=== PATIENT | female | born 1950 | race Caucasian/White ===

== ENCOUNTER 2017-11-16 18:51 | Emergency (ER) | payer MEDICARE, MEDICAID ==
[2016-09-03 14:14] VITALS: Wt 113.4 kg
[~2017-11-16 18:51] MED LIST: ACE325 PO; ACET-2607 PO; ASCO-182 PO; ASP325 PO; CEPH500C24 PO; CHOL10005 PO; CHOL100052 PO; CHOL100094 PO; CINN500C12 PO; CIP500 PO; CIPR-214 PO; CLIN-75 PO; CLIN300C99 PO; CLO10 PO; CYCL10TA29 PO; Clindamycin Hcl PO; FLUO40CA70 PO; FLUO40CA76 PO; GAB100 PO; GAB300 PO; GABA-549 PO; HYDR-385 PO; HYDR-4309 PO; IBUP-1671 PO; LEVO-85 PO; LIOT25TA19 PO; LOR5/325 PO; LURA20TA PO; MAG-65 PO; MELA1TAB17 PO; MELO-149 PO; METF-410 PO; METR-1 PO; MODA100T39 PO; MULT-16 PO; MULT-806 PO; MULT1TAB54 PO; NABU-1 PO; NABU-95 PO; NAP250 PO; NEOM1PAC11 TP; NYST100040 PO; OMEG-47 PO; OMEG10007 PO; OMEP40CA79 PO; PANT40TA65 PO; PRE5 PO; PRED20TA6 PO; PREN-127 PO; PROAIRPT IH; QUET50TA21 PO; RANI-324 PO; RIV10 PO; RIVA20TA PO; SIMV-49 PO; TRA50 PO; VAL500 PO; VALA100062 PO; VENL75CA58 PO; VITA-324 PO; VITA1CAP46 PO; WARF2.5T11 PO; WARF5TAB23 PO; Warfarin Sod PO
--- NOTE | 2017-11-16 18:54 | ER Report ---
History and Physical Time Seen By MD: 18:54 HPI/ROS CHIEF COMPLAINT: Heart pounding HISTORY OF PRESENT ILLNESS: 67-year-old female with a long history of mental health problems with numerous nits to [facility]. She states last night when retiring to bed. She had a heart pounding. Patient notes no near syncopal feeling. She notes no diaphoresis, nausea or shortness of breath. Patient states she was able to retire to bed. She felt that her heart slowed down and actually positive multiple times and then the palpitations came back. Patient denies caffeine or stimulants. Patient denies recent illness such as fever, chills, cough, sore throat or rhinitis. Patient denies leg swelling or calf pain. She does have a distant history of a PE. She is currently not on any blood thinners. She notes no chest pain. She states that she should've come in last night for evaluation. On presentation now she reports she is asymptomatic. Her heart rate is 74 bpm on the cardiac rn. REVIEW OF SYSTEMS: Respiratory: No cough, no dyspnea. Cardiovascular: As above Gastrointestinal: No vomiting, no abdominal pain. Musculoskeletal: No back pain. Allergies: Coded Allergies: Penicillins (Verified Allergy, Mild, 11/16/17) Sulfa (Sulfonamide Antibiotics) (Verified Allergy, Mild, 11/16/17) topiramate (Verified Allergy, Mild, 11/16/17) latex (Verified Allergy, Unknown, 11/16/17) erythromycin base (Verified Adverse Reaction, Intermediate, NAUSEA/ VOMITING, 11/16/17) Home Meds Active Scripts Pantoprazole Sodium (PANTOPRAZOLE SODIUM) 40 Mg Tablet.dr, 1 TAB PO DAILY, #60 TAB 6 Refills Take 1 tablet every morning 1/2 hour before eating Prov:SARAH MARIA MD 08/03/17 Reported Medications Quetiapine Fumarate (SEROQUEL) 50 Mg Tablet, 50 MG PO QHS 07/17/17 Nabumetone (NABUMETONE) 500 Mg Tablet, 500 MG PO BID, #20 TAB 07/11/17 [place]-3/Dha/Epa/Fish Oil (Fish Oil 1,000 mg Softgel) 1,000 Mg (120 Mg-180 Mg) Capsule, 1 CAP PO QDAY 07/10/17 Vits W-Ca,Fe,Fa(<1MG) ( VITAMINS) 1 Each Tablet, 1 EACH PO DAILY, TAB 07/10/17 Liothyronine Sodium (CYTOMEL) 25 Mcg Tablet, 12.5 MCG PO QAM, #30 1 Refill 09/11/16 Modafinil (PROVIGIL) 100 Mg Tablet, 200 MG PO DAILY 03/10/16 Venlafaxine Hcl (EFFEXOR XR) 75 Mg Cap.er.24h, 300 MG PO QDAY 02/18/14 Albuterol Sulfate (Proair Hfa) 8.5 Gm Aer.w.adap, 8.5 GM IH PRN 10/25/12 Gabapentin (Neurontin) 100 Mg Cap, 300 MG PO, 0 Refills 600MG IN AM AND 1200MG PM 07/12/11 Discontinued Scripts Hydrocodone Bit/Acetaminophen (HYDROCODON-ACETAMINOPHEN 5-325) 1 Each Tablet, 1 EACH PO Q4-6H Y for PAIN, #12 TAB Prov:ROSA MARIA BENZ [facility] 08/12/17 Metronidazole (FLAGYL) 500 Mg Tablet, 500 MG PO TID, #30 TAB Prov:ROSA MARIA BENZ [facility] 08/12/17 Ciprofloxacin Hcl (CIPROFLOXACIN HCL) 500 Mg Tablet, 500 MG PO Q12H, #20 TAB Prov:ROSA MARIA BENZ [facility] 08/12/17 Past Medical/Surgical History Patient has a past medical history of polymyalgia rheumatica, TIA, migraines, cardiomyopathy, [place], heart palpitations, hyperlipidemia, asthma, pulmonary embolism, reflux, frequent UTI, arthritis, osteoporosis, back pain, cyst on thyroid, prediabetic, depression, borderline personality, cervical cancer. Patient has surgical history of cardiac stent, appendectomy, cholecystectomy, polyps removed, tubal ligation, tumor on knee, tonsillectomy, carcinoma removed from back. Patient has a family medical history of cancer, diabetes, psychiatric problems. Reviewed Nurses Notes: Yes Old Medical Records Reviewed: Yes Hx Smoking: No Smoking Status: Never Smoker Exposure to Second Hand Smoke?: No Hx Substance Use Disorder: No Hx Alcohol Use: No Constitutional Vital Sign - Last 24 Hours 11/16/17 11/16/17 11/16/17 11/16/17 19:01 19:15 19:30 19:45 Temp 98.2 Pulse 76 68 77 69 Resp 10 16 14 10 B/P (MAP) 156/79 128/64 (85) Pulse Ox 92 91 91 90 O2 Delivery Room Air 11/16/17 20:00 Pulse 69 Resp 11 B/P (MAP) 132/73 (92) Pulse Ox 91 Intake and Output 11/16/17 11/16/17 11/17/17 15:00 23:00 07:00 Output Total 30 ml Balance -30 ml Physical Exam General Appearance: The patient is alert, has no immediate need for airway protection and no current signs of toxicity. Vital signs stable, afebrile, pulse ox normal HEENT: Pupils equal and round no injection. TMs normal, oropharynx without redness or exudate, mucous. Membranes are moist., Respiratory: Chest is non tender, lungs are clear to auscultation. No chest wall tenderness Cardiac: regular rate and rhythm Gastrointestinal: Abdomen is soft and non tender, no masses, bowel sounds normal. Musculoskeletal: Neck: Neck is supple and non tender. No lymphadenopathy, no JVD Extremities have full range of motion and are non tender. No edema, no calf tenderness, no Homans sign Skin: No rashes or lesions. DIFFERENTIAL DIAGNOSIS: After history and physical exam differential diagnosis was considered for chest pain including but not limited to myocardial ischemia, pericarditis pulmonary embolus, chest wall pain, pleural inflammation and pulmonary infectious causes. Medical Decision Making Data Points Result Diagram: 11/16/17190911/16/171909 Laboratory Hematology Test 11/16/17 19:10 11/16/17 19:33 Red Blood Count 4.69 M/uL (4.17-5.56) Mean Corpuscular Volume 88.2 fL (80.0-96.0) Mean Corpuscular Hemoglobin 30.8 pg (26.0-33.0) Mean Corpuscular Hemoglobin Concent 34.9 g/dL (32.0-36.0) Red Cell Distribution Width 14.6 % (11.5-14.5) Mean Platelet Volume 10.2 fL (7.2-11.1) Neutrophils (%) (Auto) 61.6 % (39.4-72.5) Lymphocytes (%) (Auto) 28.5 % (17.6-49.6) Monocytes (%) (Auto) 6.8 % (4.1-12.4) Eosinophils (%) (Auto) 2.2 % (0.4-6.7) Basophils (%) (Auto) 0.9 % (0.3-1.4) Nucleated RBC Relative Count (auto) 0.1 /100WBC Neutrophils # (Auto) 6.1 K/uL (2.0-7.4) Lymphocytes # (Auto) 2.8 K/uL (1.3-3.6) Monocytes # (Auto) 0.7 K/uL (0.3-1.0) Eosinophils # (Auto) 0.2 K/uL (0.0-0.5) Basophils # (Auto) 0.1 K/uL (0.0-0.1) Nucleated RBC Absolute Count (auto) 0.01 K/uL Sodium Level 138 mmol/L (137-145) Potassium Level 4.4 mmol/L (3.5-5.0) Chloride Level 104 mmol/L (98-107) Carbon Dioxide Level 25 mmol/L (22-31) Blood Urea Nitrogen 18 mg/dl (7-18) Creatinine 0.80 mg/dl (0.52-1.04) Glomerular Filtration Rate Calc > 60.0 Random Glucose 98 mg/dl (75-110) Calcium Level 9.3 mg/dl (8.4-10.2) Total Bilirubin 0.3 mg/dl (0.2-1.3) Aspartate Amino Transf (AST/SGOT) 25 U/L (0-35) Alanine Aminotransferase (ALT/SGPT) 31 U/L (0-56) Alkaline Phosphatase 130 U/L (0-126) Troponin I < 0.012 ng/ml B-Type Natriuretic Peptide 45 pg/ml (0-100) Total Protein 7.8 gm/dl (6.3-8.2) Albumin 4.2 g/dl (3.5-5.0) Urine Color Yellow Urine Clarity Clear Urine pH 6.0 pH (4.8-9.5) Urine Specific [place] 1.017 Urine Protein Negative mg/dL (NEGATIVE) Urine Glucose (UA) Negative mg/dL (NEGATIVE) Urine Ketones Negative mg/dL (NEGATIVE) Urine Blood Negative (NEGATIVE) Urine Nitrite Negative (NEGATIVE) Urine Bilirubin Negative (NEGATIVE) Urine Urobilinogen Negative mg/dL (0.2-1.9) Urine Leukocyte Esterase Trace (NEGATIVE) Urine RBC 1 /HPF (0-2/HPF) Urine WBC 9 /HPF (0-5/HPF) Urine Squamous Epithelial Cells None /LPF (NONE-FEW) Urine Bacteria Negative /HPF (NONE-FEW) Urine Mucus None /HPF (NONE-FEW) Chemistry Test 11/16/17 19:10 11/16/17 19:33 White Blood Count 10.0 k/uL (4.5-11.0) Red Blood Count 4.69 M/uL (4.17-5.56) Hemoglobin 14.4 g/dL (12.0-16.0) Hematocrit 41.3 % (34.0-47.0) Mean Corpuscular Volume 88.2 fL (80.0-96.0) Mean Corpuscular Hemoglobin 30.8 pg (26.0-33.0) Mean Corpuscular Hemoglobin Concent 34.9 g/dL (32.0-36.0) Red Cell Distribution Width 14.6 % (11.5-14.5) Platelet Count 188 K/uL (150-450) Mean Platelet Volume 10.2 fL (7.2-11.1) Neutrophils (%) (Auto) 61.6 % (39.4-72.5) Lymphocytes (%) (Auto) 28.5 % (17.6-49.6) Monocytes (%) (Auto) 6.8 % (4.1-12.4) Eosinophils (%) (Auto) 2.2 % (0.4-6.7) Basophils (%) (Auto) 0.9 % (0.3-1.4) Nucleated RBC Relative Count (auto) 0.1 /100WBC Neutrophils # (Auto) 6.1 K/uL (2.0-7.4) Lymphocytes # (Auto) 2.8 K/uL (1.3-3.6) Monocytes # (Auto) 0.7 K/uL (0.3-1.0) Eosinophils # (Auto) 0.2 K/uL (0.0-0.5) Basophils # (Auto) 0.1 K/uL (0.0-0.1) Nucleated RBC Absolute Count (auto) 0.01 K/uL Glomerular Filtration Rate Calc > 60.0 Calcium Level 9.3 mg/dl (8.4-10.2) Total Bilirubin 0.3 mg/dl (0.2-1.3) Aspartate Amino Transf (AST/SGOT) 25 U/L (0-35) Alanine Aminotransferase (ALT/SGPT) 31 U/L (0-56) Alkaline Phosphatase 130 U/L (0-126) Troponin I < 0.012 ng/ml B-Type Natriuretic Peptide 45 pg/ml (0-100) Total Protein 7.8 gm/dl (6.3-8.2) Albumin 4.2 g/dl (3.5-5.0) Urine Color Yellow Urine Clarity Clear Urine pH 6.0 pH (4.8-9.5) Urine Specific [place] 1.017 Urine Protein Negative mg/dL (NEGATIVE) Urine Glucose (UA) Negative mg/dL (NEGATIVE) Urine Ketones Negative mg/dL (NEGATIVE) Urine Blood Negative (NEGATIVE) Urine Nitrite Negative (NEGATIVE) Urine Bilirubin Negative (NEGATIVE) Urine Urobilinogen Negative mg/dL (0.2-1.9) Urine Leukocyte Esterase Trace (NEGATIVE) Urine RBC 1 /HPF (0-2/HPF) Urine WBC 9 /HPF (0-5/HPF) Urine Squamous Epithelial Cells None /LPF (NONE-FEW) Urine Bacteria Negative /HPF (NONE-FEW) Urine Mucus None /HPF (NONE-FEW) Urinalysis Test 11/16/17 19:33 Urine Color Yellow Urine Clarity Clear Urine pH 6.0 pH (4.8-9.5) Urine Specific [place] 1.017 Urine Protein Negative mg/dL (NEGATIVE) Urine Glucose (UA) Negative mg/dL (NEGATIVE) Urine Ketones Negative mg/dL (NEGATIVE) Urine Blood Negative (NEGATIVE) Urine Nitrite Negative (NEGATIVE) Urine Bilirubin Negative (NEGATIVE) Urine Urobilinogen Negative mg/dL (0.2-1.9) Urine Leukocyte Esterase Trace (NEGATIVE) Urine RBC 1 /HPF (0-2/HPF) Urine WBC 9 /HPF (0-5/HPF) Urine Squamous Epithelial Cells None /LPF (NONE-FEW) Urine Bacteria Negative /HPF (NONE-FEW) Urine Mucus None /HPF (NONE-FEW) EKG/Imaging EKG Interpretation 12 lead EK Rhythm: normal sinus rhythm Ramsey: normal QRS: normal, low voltage QRS ST segments: normal, comparison to previous EKG dated 09/14/16, no significant morphologic change. There is some subtle axis change, no evidence of ischemia Imaging X-ray: Single view portable chest x-ray was obtained. I viewed the images myself on the PACS system. My interpretation of the images is: No infiltrate, no effusion,, normal mediastinum. The radiologist interpretation had no clinically significant variation from this interpretation. ED Course/Re-evaluation Clinical Indication for ER IV: IV Access ED Course Patient admitted to an examination room. H&P is done. The differential diagnosis was considered. On clinical examination. Patient has no findings. Her EKG is unremarkable. Her chest x-rays unremarkable. Her diagnostic studies are unremarkable. A urinalysis is unremarkable. Patient is reassured that there are no obvious explanations for her tachycardia and palpitations. I suspect she suffered an anxiety attack. She does have a history of mental health disorder. She is advised to follow-up with her primary care this week for further evaluation and monitoring of the symptoms. She may benefit from a Holter monitor to detect any dysrhythmias. Decision to Disposition Date: Nov 16, 2017 Decision to Disposition Time: 19:37 Depart Departure Latest Vital Signs Vital Signs Date Time Temp Pulse Resp B/P (MAP) Pulse Ox O2 Delivery O2 Flow Rate FiO2 11/16/17 20:00 69 11 132/73 (92) 91 11/16/17 19:01 98.2 Room Air Impression: Primary Impression: Heart palpitations Condition: Improved Disposition: HOME OR SELF-CARE Referrals: SANDEE LAWSON (PCP) Patient Instructions: Palpitations (ED) Additional Instructions: Follow-up with your primary care within one week for referral for a Holter monitor to evaluate your palpitations JAZMÍN COATS DO Nov 16, 2017 18:54
[2017-11-16 19:20] LABS: PLATELET COUNT, AUTOMATED 188 K/uL (150-450)
--- NOTE | 2017-11-16 19:38 | EKG ---
[place] [facility] [place] SHERI REILLY : [id number] MR: [id number] V: [id number] EXAM DATE: ORDERING PHYSICIAN: JAZMÍN COATS TECHNOLOGIST: RAQUEL Mathis Reason : PALPITATIONS Blood Pressure : / mmHG Vent. Rate : 068 BPM Atrial Rate : 068 BPM P-R Int : 172 ms QRS Dur : 082 ms QT Int : 426 ms P-R-T Axes : 059 -16 033 degrees QTc Int : 452 ms Normal sinus rhythm Low voltage QRS Septal infarct , age undetermined Abnormal ECG When compared with ECG of 15-JUL-2017 21:17, premature ventricular complexes are no longer present Questionable change in QRS axis Confirmed by SARAH DUBOIS ([id number]) on 11/18/2017 2:16:14 PM Referred By: Confirmed By:SARAH DUBOIS
--- NOTE | 2017-11-16 19:39 | RADIOLOGY IMAGING REPORT ---
FACILITY: [facility] - [place] PATIENT NAME: Lisbet Staples : 1950 MR: [id number] V: [id number] EXAM DATE: ORDERING PHYSICIAN: JAZMÍN COATS TECHNOLOGIST: Location: [facility] [place] Patient: Lisbet Staples : 1950 Visit/Account:[id number] Date of Sevice: 11/16/2017 EXAMINATION: Chest radiograph HISTORY: Chest pain COMPARISON: April 24, 2015 FINDINGS: The cardiac silhouette is normal in size. No pneumothorax. Small calcified granuloma in the medial le ft lower lobe is new. This could alternatively represent a blood vessel mimicking a calcified granulo ma. Otherwise clear lungs. No acute osseous abnormality. IMPRESSION: No acute finding. Report Dictated By: Kaushik Diop MD at 11/16/2017 7:32 PM Report E-Signed By: Kaushik Diop MD at 11/16/2017 7:34 PM [id number]
[2017-11-16 20:00] VITALS: BP 132/73
== END 2017-11-16 20:20 | disposition home or self-care (01) ==
LOC: ER 19:21
DX: R00.2 Palpitations (principal); R94.31 Abnormal electrocardiogram [ECG] [EKG]
CPT/HCPCS: 71045; 81001; 83880; 84484; 85025; 93005; 99284; A4353; 82040; 82247; 82310; 82374; 82435; 82565; 82947; 84075; 84132; 84155; 84295; 84450; 84460; 84520

== ENCOUNTER → 2018-01-24 | Outpatient (REF) | payer MEDICARE, MEDICAID ==
[2016-09-03 14:14] VITALS: BMI 41.0
[~2018-01-24] MED LIST changes: -METF-410 PO; +METF-411 PO; -RANI-324 PO; +RANI-366 PO
[2018-01-24 16:54] LABS: PLATELET COUNT, AUTOMATED 176 K/uL (150-450)
== END ==
LOC: ZZSTITCHES 16:27
PROVIDERS: ATTEND Physician Assistant
DX: N93.9 Abnormal uterine and vaginal bleeding, unspecified (principal); R71.8 Other abnormality of red blood cells; R35.0 Frequency of micturition; R00.2 Palpitations; R94.6 Abnormal results of thyroid function studies; E11.9 Type 2 diabetes mellitus without complications
CPT/HCPCS: 82040; 82247; 82310; 82374; 82435; 82565; 82947; 83036; 83690; 84075; 84132; 84155; 84295; 84439; 84443; 84450; 84460; 84481; 84520; 85025; 87088

== ENCOUNTER → 2018-02-02 | Outpatient (CLI) | payer MEDICARE, MEDICAID ==
[2016-09-03 14:14] VITALS: BMI 41.0
--- NOTE | 2018-02-06 14:53 | RT HOLTER TEST ---
FACILITY: [facility] PATIENT NAME: SHERI REILLY : [id number] MR: [id number] V: [id number] EXAM DATE: ORDERING PHYSICIAN: SANDEE LAWSON TECHNOLOGIST: Noemy Rosas-up date: 2018-02-02 13:18:00 Duration: 47:59:00 Test Indications: SOB, FATIGUE Medications: Gabapentin Effexor Nabutone Lethothyroxine Profigil Protonix Tramadol [id number] QRS complexes 30759 Ventricular ectopics which represent 5 % of total QRS comp. 20 Supraventricular ectopics which represent <1 % of total QRS comp. * Paced QRS complexes which represent % of total QRS comp. VENTRICULAR ECTOPY 77684 Isolated 21 Bigeminal Cycles 206 Couplets 1 Runs 3 Beats in Runs 3 Beats LONGEST at 138 BPM at 23:51:25 2018-02-03 3 Beats FASTEST at 138 BPM at 23:51:25 2018-02-03 SUPRAVENTRICULAR ECTOPY 17 Isolated 0 Couplets 1 Runs 3 Beats in Runs 3 Beats LONGEST at 123 BPM at 21:19:08 2018-02-02 3 Beats FASTEST at 123 BPM at 21:19:08 2018-02-02 HEART RATES 54 MIN at 09:14:13 2018-02-04 77 AVG 122 MAX at 13:51:51 2018-02-03 LONGEST RR 1.416 secs at 20:52:38 2018-02-03 Channel 3 -12.800 mm MIN at 13:18:00 2018-02-02 -12.800 mm MAX at 13:18:00 2018-02-02 Sinus rhythm Premature ventricular complexes Isolated Couplets Confirmed by SARAH DUBOIS ([id number]) on 02/06/2018 2:52:18 PM Referred By: Overread By: SARAH DUBOIS
== END ==
LOC: RESP 01:48
PROVIDERS: ATTEND Physician Assistant
DX: R00.2 Palpitations (principal); R35.0 Frequency of micturition; R71.8 Other abnormality of red blood cells; N93.9 Abnormal uterine and vaginal bleeding, unspecified; R94.6 Abnormal results of thyroid function studies; E11.9 Type 2 diabetes mellitus without complications
CPT/HCPCS: 93225; 93226

== ENCOUNTER → 2018-02-11 | Outpatient (CLI) | payer MEDICARE, MEDICAID ==
[2016-09-03 14:14] VITALS: BMI 41.0
== END ==
LOC: LAB 13:39
PROVIDERS: ATTEND Obstetrics & Gynecology
DX: N89.8 Other specified noninflammatory disorders of vagina (principal)
CPT/HCPCS: 87210

== ENCOUNTER → 2018-02-17 | Outpatient (CLI) | payer MEDICARE, MEDICAID ==
[2016-09-03 14:14] VITALS: BMI 41.0
--- NOTE | 2018-02-17 14:02 | RADIOLOGY IMAGING REPORT ---
FACILITY: PATIENT NAME: Lisbet Staples : 1950 MR: [id number] V: [id number] EXAM DATE: ORDERING PHYSICIAN: FRANCISCO ONEIL TECHNOLOGIST: Location: [facility] - [place] Patient: Lisbet Staples : 1950 Visit/Account:[id number] Date of Sevice: 02/17/2018 TRANSVAGINAL NON-OB HISTORY: POSTMENOPAUSAL BLEEDING TECHNIQUE: Transvaginal ultrasound pelvis. COMPARISON: CT and pelvis August 12, 2017 FINDINGS: Uterus: ; 7.1 cm length x 3.2 cm AP x 4.7 cm transverse. Myometrium: Unremarkable. Endometrium: Appears irregular and heterogeneous. Two anechoic structures are seen within the endome trium one measuring 1 x 1 x 0.7 cm and one measuring 0.6 x 0.3 x 0.4 cm.; double thickness 8.8 mm. I ncidentally noted is a section scar Cervix: Grossly negative. Ovaries: Right - 2.1 x 1.2 x 1.4 cm and contains two calcifications one measuring 4 mm in diameter one me asuring 2 mm in diameter Left - 2 x 1.8 x 1.8 cm Blood flow is documented in each ovary by duplex Doppler ultrasound. Adnexa: Grossly unremarkable. Free pelvic fluid: None. IMPRESSION: The endometrium appears heterogeneous and irregular containing two anechoic structures. Both ovaries appear atrophic. The right ovary contains two coarse calcifications Report Dictated By: Kalee Hsu MD at 02/17/2018 1:54 PM Report E-Signed By: Kalee Hsu MD at 02/17/2018 1:58 PM [id number]:[email or web address]
== END ==
LOC: RAD 11:24
PROVIDERS: ATTEND Obstetrics & Gynecology
DX: N83.312 Acquired atrophy of left ovary (principal); N83.311 Acquired atrophy of right ovary; N85.8 Other specified noninflammatory disorders of uterus
CPT/HCPCS: 76830

== ENCOUNTER 2018-03-11 15:15 | Outpatient (RCR) | payer MEDICARE, MEDICAID ==
[2016-09-03 14:14] VITALS: BMI 41.0
--- NOTE | 2018-02-09 17:23 | PT INITIAL EVALUATION ---
MEDICAL DIAGNOSIS: R26.81 Unsteadiness on feet TREATMENT DIAGNOSIS: Same, altered gait DATE OF ONSET: 08/23/16 SUBJECTIVE: Lisbet Staples presents to PT for altered gait and balance, worsening over the last several years. She has a long R LE, was pigeon-toed as a child, per Lisbet, but also LBP and fatigue have made ambulation difficult. She uses a scooter to shop at [employer] or a standard cart for other grocery stores, with fatigue by the end of a short shopping trip. She also has R knee pain but isn' t ready to see an orthopedic doctor about it. She reports falling in the last 3 months without injury. Pain location is L-S and described as ache, grab. Pain scale is 8 on a ten point pain scale. Pain is worse with walking short community distances, static standing, sitting twisted and better with nothing reduces the pain. REHAB PROBLEM LIST: Increased Pain Decreased ROM Decreased Strength Decreased Endurance Decreased Balance Decreased Gait PREVIOUS MEDICAL HISTORY: Polymyalgia rheumatica, L TKA, migraines, PE, asthma, back pain, psychiatric disorder, R knee pain. OCCUPATION: Disabled OBJECTIVE: Posture: Long R LE, ~ 1 to 1.5 inches, valgus knees, R lumbar scoliosis following long leg. ROM: Hip PROM IR/ER R 60/60 degrees, loose capsule, L 45/40 degrees, ankle DF 0 deg. B. B knee PROM WNL. Strength: Core strength 1/5, hip flexors 3+/5 B, L quad 4/5, R 4-/5, hamstrings 4/5 B, calves R 4+/5, L 4-/5. Special Tests: Negative SLR, B. Mobility: Independent. Gait: Lisbet ambulates with B trunk lean in stance, mild L LE IR after midstance, with pelvic rotation following head turn during gait with head turns, weaving with gait with head rotation and head up/down. She has reduced heel strike, long R LE gait as well. Dynamic gait index 18, a high fall risk. Balance: Double limb support only. Steady with eyes closed and push to chest. Immediate standing balance is WNL. ASSESSMENT: Lisbet Staples presents with core and LE weakness, reduced balance creating fall risk and reduced community ambulation. She did well with core and LE strengthening today. Short Term Goals/Patient's Goals: One month:Lisbet ambulates 50 feet with normal pelvic alignment during gait with head rotation. Two months: Lisbet ambulates without trunk lean substitution in stance, no falls for 1 month. Three months: Lisbet shops through [employer] pushing a standard grocery cart and walks 1 mile at the [employer] [place]. PLAN: Patient to be seen for Strengthening/condition, Range of Motion, Spinal Stabilization, Stretching, Neuromuscular Re-ed, Gait Trg/Balance Trg, Home Exercise Program 2x/Week for 3 months Thank you for this referral. If you have any questions, comments, or concerns about this report or plan, please contact me at . [facility]
--- NOTE | 2018-03-23 08:12 | PT PLAN OF CARE ---
Physician: Dr. Obdulio De La Torre Patient is on hold due to [facility] inpatient admission Therapist: Lorraine Valdez , PT Treatment Diagnosis: Same, altered gait Date of Onset: 08/23/16 Date of Initial Evaluation: 02/09/18 Date patient was last seen: 03/09/18 Number of treatments: 4 Number of cancellations/No shows: 3 INTERVENTIONS: Strengthening/condition Range of Motion Spinal Stabilization Stretching Neuromuscular Re-ed Gait Trg/Balance Trg Home Exercise Program GOALS/PATIENT'S GOAL: All not met due to LBP One month:Lisbet ambulates 50 feet with normal pelvic alignment during gait with head rotation. Two months: Lisbet ambulates without trunk lean substitution in stance, no falls for 1 month. Three months: Lisbet shops through [employer] pushing a standard grocery cart and walks 1 mile at the [employer] [place]. Patient Compliance: Excellent Prognosis: Excellent Reasons for discontinuing therapy: S: Lisbet was admitted to [facility] inpatient floor for intractable LBP. She had an MRI that's positive for more anterolisthesis in the lumbar spine. O: She had improved her postural stability but LBP was limiting treatment. A?P: LBP control is more important right now. Due to Lisbet's admission, I need to DC outpatient PT. Thank you. MICHELE
== END 2018-03-11 18:00 | disposition home or self-care (01) ==
LOC: PT 15:15
PROVIDERS: ATTEND Podiatrist Foot & Ankle Surgery
DX: R26.81 Unsteadiness on feet (principal); M54.5 Low back pain; R53.83 Other fatigue; M25.561 Pain in right knee; R29.6 Repeated falls; M35.3 Polymyalgia rheumatica; Z96.652 Presence of left artificial knee joint
CPT/HCPCS: 97162

== ENCOUNTER → 2018-03-17 | Outpatient (CLI) | payer MEDICARE, MEDICAID ==
[2016-09-03 14:14] VITALS: BMI 41.0
--- NOTE | 2018-03-17 14:59 | RADIOLOGY IMAGING REPORT ---
[place] [facility] [place]IENT NAME: Lisbet Staples : 1950 MR: [id number] V: [id number] EXAM DATE: ORDERING PHYSICIAN: ORESTES JUDD TECHNOLOGIST: Location: [facility] Patient: Lisbet Staples : 1950 Visit/Account:[id number] Date of Sevice: 03/17/2018 EXAMINATION: L SPINE W/O CONTRAST INDICATION: Spondylolisthesis COMPARISON: June 04, 2017 TECHNIQUE: Multiplane MR imaging was performed through the lumbar spine without contrast. FINDINGS: Vertebral bodies: Normal Conus position/signal: Normal Marrow signal: Minimal degenerative edema surrounds the L4-5 and L5-S1 disc spaces. Extraspinal structures including psoas muscles/paraspinal soft tissues: Left renal cyst noted. L1-2: Ligamentum flavum thickening as before, mild to moderate unchanged left foraminal narrowing, mi ld unchanged right foraminal narrowing. L2-3: Small unchanged disc protrusion. Unchanged ligamentum flavum thickening. Unchanged mild bilater al lateral recess narrowing. Mild unchanged left foraminal narrowing. Moderate unchanged right forami nal narrowing. L3-4: Small unchanged disc protrusion. Unchanged moderate facet arthropathy and ligamentum flavum thi ckening. Congenitally narrowed canal. Unchanged bilateral lateral recess narrowing and unchanged mild to moderate canal narrowing. Slight unchanged anterolisthesis of L3 on L4. Mild to moderate unchange d left foraminal narrowing. Moderate unchanged right foraminal narrowing. L4-5: New slight anterolisthesis of L4 on L5. Small unchanged disc protrusion. Congenitally narrowed canal. Ligamentum flavum thickening as before and mild unchanged facet arthropathy. Bilateral lateral recess narrowing and moderate canal narrowing have slightly increased. Moderate unchanged left and m oderate unchanged right foraminal narrowing. L5-S1: Unchanged left-sided disc space degeneration. Small unchanged disc protrusion. Unchanged moder ate facet arthropathy. No canal narrowing. Moderate to severe unchanged left foraminal narrowing. Mod erate unchanged right foraminal narrowing. IMPRESSION: 1. Multilevel foraminal narrowing similar to prior, see level by level comments above. 2. Unchanged mild to moderate L3-4 canal and lateral recess narrowing secondary to the constellation of findings described above. 3. Moderate L4-5 canal narrowing and bilateral lateral recess narrowing has slightly increased second jenni to the constellation of findings described above. Report Dictated By: Kaushik Diop MD at 03/17/2018 2:46 PM Report E-Signed By: Kaushik Diop MD at 03/17/2018 2:56 PM WSN:[id number]
== END ==
LOC: MRI 01:36
PROVIDERS: ATTEND Physician Assistant
DX: M48.061 Spinal stenosis, lumbar region without neurogenic claudication (principal)
CPT/HCPCS: 72148

== ENCOUNTER 2018-03-22 12:15 | Observation (INO) | payer MEDICARE, MEDICAID ==
[2016-09-03 14:14] VITALS: Ht 172.7 cm; Wt 114.4 kg
[~2018-03-22] VITALS: Ht 172.7 cm; Wt 114.4 kg
[~2018-03-22 12:15] MED LIST changes: -GABA-547 PO; -IBUP800T37 PO; -LINA145C PO; -TRAM-420 PO; -VENL150C61 PO
--- NOTE | 2018-03-22 12:22 | ER Report ---
History and Physical Time Seen By MD: 12:21 Hx. of Stated Complaint: Patient with right sided hip pain radiating down leg. HPI/ROS CHIEF COMPLAINT: Back pain HISTORY OF PRESENT ILLNESS: This is a 68-year-old female presents to the emergency department via EMS for sudden onset of right lower back pain. Patient states that about 11:30 she was making some tea twisted and suddenly developed severe right lower back pain that radiated into the back of her leg down to her knee. No loss of bowel or bladder. No saddle anesthesia. Patient did get 2 mg of intranasal Ativan prior to arrival. Upon arrival it is very difficult to get information out of the patient is she's crying, not forthcoming with a lot of information at this time, she states her pain is too severe, she is yelling and screaming, holding an ice pack on her right buttock. I did get out of the patient that she just had an MRI done which was negative for any acute findings that seemed consistent with chronic degenerative changes. Patient is seeing a back specialist in [place]. She denies chest pain or shortness of breath, no aches or chills or fevers. No nausea or vomiting. REVIEW OF SYSTEMS: Constitutional: No fever, no chills. Eyes: No discharge. ENT: No sore throat. Cardiovascular: No chest pain, no palpitations. Respiratory: No cough, no shortness of breath. Gastrointestinal: No abdominal pain, no vomiting. Genitourinary: No hematuria. Musculoskeletal: As above. Skin: No rashes. Neurological: No headache. Allergies: Coded Allergies: Penicillins (Verified Allergy, Mild, 11/16/17) Sulfa (Sulfonamide Antibiotics) (Verified Allergy, Mild, 11/16/17) topiramate (Verified Allergy, Mild, 11/16/17) latex (Verified Allergy, Unknown, 11/16/17) erythromycin base (Verified Adverse Reaction, Intermediate, NAUSEA/ VOMITING, 11/16/17) Home Meds Active Scripts Pantoprazole Sodium (PANTOPRAZOLE SODIUM) 40 Mg Tablet.dr, 1 TAB PO DAILY, #60 TAB 6 Refills Take 1 tablet every morning 1/2 hour before eating Prov:SARAH MARIA MD 08/03/17 Reported Medications Linaclotide (LINZESS) 145 Mcg Capsule, 145 MCG PO QDAY, CAPSULE 03/22/18 Venlafaxine Hcl (EFFEXOR XR) 150 Mg Cap.er.24h, 300 MG PO QDAY 03/22/18 Quetiapine Fumarate (SEROQUEL) 50 Mg Tablet, 50 MG PO QHS 07/17/17 Nabumetone (NABUMETONE) 500 Mg Tablet, 500 MG PO BID, #20 TAB 07/11/17 [place]-3/Dha/Epa/Fish Oil (Fish Oil 1,000 mg Softgel) 1,000 Mg (120 Mg-180 Mg) Capsule, 1 CAP PO QDAY 07/10/17 Vits W-Ca,Fe,Fa(<1MG) ( VITAMINS) 1 Each Tablet, 1 EACH PO DAILY, TAB 07/10/17 Liothyronine Sodium (CYTOMEL) 25 Mcg Tablet, 12.5 MCG PO QAM, #30 1 Refill 09/11/16 Modafinil (PROVIGIL) 100 Mg Tablet, 200 MG PO DAILY 03/10/16 Albuterol Sulfate (Proair Hfa) 8.5 Gm Aer.w.adap, 8.5 GM IH PRN 10/25/12 Gabapentin (Neurontin) 100 Mg Cap, 300 MG PO, 0 Refills 600MG IN AM AND 1200MG PM 07/12/11 Discontinued Reported Medications Tramadol Hcl (TRAMADOL HCL) 50 Mg Tablet, 50 MG PO Q6H, TAB 03/22/18 Venlafaxine Hcl (EFFEXOR XR) 75 Mg Cap.er.24h, 300 MG PO QDAY 02/18/14 Past Medical/Surgical History The patient has a past medical and surgical history of polymyalgia rheumatica, migraines, cardiomyopathy, heart attack, palpitations, hypercholesterolemia, asthma, PE, colitis, GERD, arthritis, fibromyalgia, John-[place], chronic back pain, wears glasses, prediabetic, benign cyst on thyroid, depression, anxiety, borderline personality, suicide attempt, cervical cancer, cardiac stent placed, appendectomy, cholecystectomy, tubal ligation, partial dentures, carcinoma removed from back. Reviewed Nurses Notes: Yes Hx Smoking: No Smoking Status: Never Smoker Exposure to Second Hand Smoke?: No Hx Substance Use Disorder: No Hx Alcohol Use: No Constitutional Vital Sign - Last 24 Hours 03/22/18 03/22/18 03/22/18 03/22/18 12:14 12:30 13:00 13:15 Pulse 81 62 55 Resp 22 B/P (MAP) 120/110 126/106 (113) 127/55 (79) Pulse Ox 91 90 86 03/22/18 03/22/18 03/22/18 03/22/18 13:30 13:45 14:00 14:15 Pulse 72 75 79 87 B/P (MAP) 123/87 (99) Pulse Ox 89 90 88 92 03/22/18 03/22/18 03/22/18 14:30 14:45 15:30 Pulse 63 60 70 Pulse Ox 91 91 90 Physical Exam General Appearance: The patient is alert, has no immediate need for airway protection and no signs of toxicity, anxious and tearful. Eyes: Pupils equal and round no pallor or injection. ENT, Mouth: Mucous membranes are moist. Respiratory: There are no retractions, lungs are clear to auscultation. Cardiovascular: Regular rate and rhythm. Gastrointestinal: Abdomen is soft and non tender, no masses, bowel sounds normal. Neurological: Alert and oriented 4. Moving all extremities. Following all commands. No focal neurologic deficits. Skin: Warm and dry, no rashes. Musculoskeletal: Neck is supple non tender. Right Lumbar back pain into glutenous. No obvious deformities, stepoff or crepitus noted. Extremities are nontender, nonswollen and have full range of motion. DIFFERENTIAL DIAGNOSIS: After history and physical exam differential diagnosis was considered for back pain including but not limited to muscular pain, herniated disc, spine fracture, intra-abdominal causes and urinary tract infection. Medical Decision Making ED Course/Re-evaluation ED Course The patient was admitted to a room via ems. A history and physical was obtained. Differential diagnoses were considered. An IV was started. The patient was given 5mg IV valium x2, 30mg IV toradol, 2mg Intranasal ativan en route and a 10mg Ketamine bolus with a ketamine drip. The patient continues to have lumbar back pain. Given no recent fevers, no traumatic events, a known history of back pain, no saddle anesthesia, no loss of B/B and an MRI showing no acute findings 5 days ago, no repeat imaging was done at this time. I did discuss the case with Dr. Curran-Still the hospitalist, he has agreed to admit the patient for intractable pain. The patient is agreeable and admitted to the medical floor. 03/22/2018 12:56:29 pm patient continues to complain of the pain in her right lower back, she is still unable to remain still, moving around on the gurney, crying. 03/22/2018 2:28:06 pm patient continued to have right lower back pain, the Valium and Toradol seemed to decrease the pain a little bit however the patient was still wriggling around and uncomfortable and very agitated about her back pain. Dr. berman about trying ketamine for her back pain she is agreeable to this, a ketamine bolus and drip were started. 03/22/2018 3:23:42 pm patient had a total of 2 mg intranasal Ativan prior to arrival, a total of 10 mg IV Valium, 30 mg IV Toradol, 10mg Ketamine IV bolus, and a Ketamine drip. 03/22/2018 3:22:17 pm I did speak with Dr. Salguero regarding the patient 's case, he is accepted the patient into his hospitalist services for intractable back pain. Decision to Disposition Date: Mar 22, 2018 Decision to Disposition Time: 15:22 Depart Departure Latest Vital Signs Vital Signs Date Time Temp Pulse Resp B/P (MAP) Pulse Ox O2 Delivery O2 Flow Rate FiO2 03/22/18 15:30 70 90 03/22/18 13:30 123/87 (99) 03/22/18 12:14 22 Impression: Primary Impression: Intractable low back pain Additional Impression: Back pain of lumbosacral region with sciatica Condition: Condition Unchanged Disposition: Admitted from ER Referrals: SANDEE LAWSON (PCP) Problem Qualifiers MALA LOO MATRIX REPAIRER-BC Mar 22, 2018 12:22
[2018-03-22] MEDS ORDERED: TRAM-420 PO (12:30)
[2018-03-22] MEDS ORDERED: DIAZEPAM 50 MG/10 ML MDV IVP ONE ×2 (12:30→12:55)
[2018-03-22] MEDS ORDERED: VENL150C61 PO (12:30)
[2018-03-22] MEDS ORDERED: LINA145C PO (12:30)
[2018-03-22] MEDS ORDERED: KETOROLAC 30 MG/ML VIAL IVP ONE (12:55)
[2018-03-22] MEDS ORDERED: KETAMINE HCL(*)500MG/5ML VIAL 500 MG in NS(*) 0.9% 500 ML BAG 495 ML IVPB ONE (13:45)
[2018-03-22] MEDS ORDERED: HALOPERIDOL LACT 5 MG/ML VIAL IM ONE (14:50)
[2018-03-22 16:40] VITALS: BP 115/48
[2018-03-22] MEDS ORDERED: GABA-549 PO (16:46)
[2018-03-22] MEDS ORDERED: GABA-547 PO (16:46)
[2018-03-22] MEDS ORDERED: ONDANSETRON 4 MG/2 ML VIAL IVP PRN (18:00)
[2018-03-22] MEDS ORDERED: FLUSH 10 ML SYR IVP PRN (18:00)
[2018-03-22] MEDS ORDERED: CYCLOBENZAPRINE HCL 10 MG TAB PO PRN (18:00)
[2018-03-22] MEDS ORDERED: INFLUENZA VIRUS VAC 0.5 ML SYR IM ONLY ONE (18:00)
[2018-03-22] MEDS ORDERED: ALBUTEROL 8 GM INHALER INH PRN (18:00)
[2018-03-22] MEDS ORDERED: IBUPROFEN 800 MG TAB PO PRN (18:00)
--- NOTE | 2018-03-22 18:53 | History & Physical ---
History of Present Illness Chief Complaint Intractable back pain History of Present Illness 68F presents to the emergency department via EMS for sudden onset of right lower back pain. Patient states that about 11:30 she was making some tea twisted and suddenly developed severe right lower back pain that radiated into the back of her leg down to her knee. No loss of bowel or bladder. No saddle anesthesia. Patient did get 2 mg of intranasal Ativan prior to arrival in ER and several Rx in ER for pain (Ketamine, Valium, Toradol) and reported continued intractable back pain though felt "drugged up". Admitted for pain control. On examination after reaching floor pt is lying comfortably on L side in bed, reports pain when trying to lie on R side. Pain reported as 4/10 and when first occurred had radicular pain into R leg to knee. Pt with chronic back pain but denies previous episodes such as this. No alarm symptoms, story inconsistent on what treatment she has received before. Reports seeing back specialist in [place]. Pt does have extensive psych history and Hx fibromyalgia which may be exacerbating problem. Appears on MRI to have some narrowing, DJD, no acute findings as of 5d ago. History Problems: (1) Fibromyalgia Status: Chronic (2) Depression Status: Chronic (3) Borderline personality disorder Status: Chronic (4) Hypothyroidism Status: Acute (5) Degenerative joint disease Status: Chronic Home Meds Active Scripts Pantoprazole Sodium (PANTOPRAZOLE SODIUM) 40 Mg Tablet.dr, 1 TAB PO DAILY, #60 TAB 6 Refills Take 1 tablet every morning 1/2 hour before eating Prov:SARAH MARIA MD 08/03/17 Reported Medications Gabapentin (GABAPENTIN) 300 Mg Capsule, 600 MG PO HS, CAPSULE 03/22/18 Gabapentin (GABAPENTIN) 100 Mg Capsule, 100 MG PO QAM, CAPSULE 03/22/18 Linaclotide (LINZESS) 145 Mcg Capsule, 145 MCG PO QWEEK, CAPSULE 03/22/18 Venlafaxine Hcl (EFFEXOR XR) 150 Mg Cap.er.24h, 300 MG PO QDAY 03/22/18 Quetiapine Fumarate (SEROQUEL) 50 Mg Tablet, 50 MG PO QHS 07/17/17 Nabumetone (NABUMETONE) 500 Mg Tablet, 500 MG PO BID, #20 TAB 07/11/17 Vits W-Ca,Fe,Fa(<1MG) ( VITAMINS) 1 Each Tablet, 1 EACH PO DAILY, TAB 07/10/17 Liothyronine Sodium (CYTOMEL) 25 Mcg Tablet, 12.5 MCG PO QAM, #30 1 Refill 09/11/16 Modafinil (PROVIGIL) 100 Mg Tablet, 200 MG PO DAILY 03/10/16 Albuterol Sulfate (Proair Hfa) 8.5 Gm Aer.w.adap, 8.5 GM IH PRN 10/25/12 Discontinued Reported Medications Tramadol Hcl (TRAMADOL HCL) 50 Mg Tablet, 50 MG PO Q6H, TAB 03/22/18 [place]-3/Dha/Epa/Fish Oil (Fish Oil 1,000 mg Softgel) 1,000 Mg (120 Mg-180 Mg) Capsule, 1 CAP PO QDAY 07/10/17 Venlafaxine Hcl (EFFEXOR XR) 75 Mg Cap.er.24h, 300 MG PO QDAY 02/18/14 Gabapentin (Neurontin) 100 Mg Cap, 300 MG PO, 0 Refills 600MG IN AM AND 1200MG PM 07/12/11 Allergies: Coded Allergies: Penicillins (Verified Allergy, Mild, 11/16/17) Sulfa (Sulfonamide Antibiotics) (Verified Allergy, Mild, 11/16/17) topiramate (Verified Allergy, Mild, 11/16/17) latex (Verified Allergy, Unknown, 11/16/17) erythromycin base (Verified Adverse Reaction, Intermediate, NAUSEA/ VOMITING, 11/16/17) Patient History: FH: cancer FATHER, Onset:50's - 60 BROTHER OR SISTER BROTHER OR SISTER BROTHER OR SISTER BROTHER OR SISTER FH: diabetes mellitus FATHER, Onset:50's - 60 FH: heart disease FATHER, Onset:40's - 50 MOTHER, Onset:50's - 60 BROTHER OR SISTER Hx Smoking: No Smoking Status: Never Smoker Exposure to Second Hand Smoke?: No Caffeine Intake: Tea Caffeine/Cups Per Day: one cup a day Hx Alcohol Use: No Hx Substance Use Disorder: No (stated never did drugs but tested positive for Marijuana) Social Drug Use: Occasional Social Drugs: Marijuana Review of Systems Constitutional: No Fever, No Weight Loss, No Weight Gain Neurological: No Syncope, No Confusion, No Weakness Eyes: No Vision Change, No Photophobia ENT: No Hearing Loss, No Sinus Congestion Cardiovascular: No Chest Pain, No Palpitations Respiratory: No Shortness of Breath Gastrointestinal: No Nausea, No Vomiting, No Diarrhea, No Dysphagia, No Constipation Genitourinary: No Dysuria, No Hematuria Musculoskeletal: Pain, Strain Psychiatric: No Depression Exam Vital Signs Vital Signs Date Time Temp Pulse Resp B/P (MAP) Pulse Ox O2 Delivery O2 Flow Rate FiO2 03/22/18 17:03 91 Room Air 03/22/18 16:40 97.7 65 20 115/48 (70) General Appearance: Alert, Awake, No Acute Distress Neuro: No Gross deficits Eyes: PERRLA ENT: Normal Cardiovascular: Normal Rhythm & Peripheral Pulses Respiratory: No Respiratory Distress Chest: No Tenderness GI: Abd Soft and Non-Tender Lymph: Cervical Nodes Benign Musculoskeletal: Other (+ back pain, R SI joint) Extremities: Soft and Non Tender, Warm, Pulses, No Edema Integumentary: Skin Intact without Lesion / Mass Psych: Alert & Oriented X3, Appropriate Mood & Affect Assessment and Plan Problems: (1) Back pain of lumbosacral region with sciatica Status: Acute Assessment & Plan: Acute on chronic, no alarm features. Mechanism of injury is low energy, defer imaging at this time. Given chronic pain and psychiatric Hx suspect minimal improvement in patient pain overnight; however, given pt presentation on floor when examined and apparent level of pain may d/c rapidly. Pain improved after getting to floor, will request PT/OT eval, begin 800 IBP and cyclobenzaprine prn. Anticipate d/c tomorrow, consider imaging if any alarm symptoms present. (2) Depression Status: Chronic Assessment & Plan: On Effexor, will continue. Seroquel continued as well. (3) Borderline personality disorder Status: Chronic Assessment & Plan: Continue Effexor and Seroquel. (4) Fibromyalgia Status: Chronic Assessment & Plan: Continue gabapentin, Effexor. Holding nabumetone as using ibuprofen while inpatient. (5) Obesity (BMI 30-39.9) Assessment & Plan: BMI 38.3, exacerbating back pain. Would benefit from weight loss. (6) Hypothyroidism Status: Acute Assessment & Plan: Continue home thyroid replacement. Venous Thromboembolism Antithrombotics Is Pt On Any Antithrombotics?: Yes Exam Sepsis Risk: No Definite Risk LEDESMA ANGELY KILGORE DO Mar 22, 2018 18:53
[2018-03-22 19:00] VITALS: BP 150/63
[2018-03-22] MEDS ORDERED: QUEtiapine FUM 25 MG TAB PO SCH (21:00)
[2018-03-22] MEDS ORDERED: LIDOCAINE 5% PATCH TP SCH (21:00)
[2018-03-22] MEDS ORDERED: GABAPENTIN 300 MG CAP PO SCH (21:00)
[2018-03-23 02:53] VITALS: BP 106/40
[2018-03-23 07:22] VITALS: BP 97/43
[2018-03-23] MEDS ORDERED: CYCL10TA29 PO (08:00)
[2018-03-23] MEDS ORDERED: IBUP800T37 PO (08:00)
--- NOTE | 2018-03-23 08:06 | Hospitalist Depart ---
Discharge Summary Reason for Hosp/Final Diag: (1) Back pain of lumbosacral region with sciatica Status: Acute Hospital Course & Plan: Acute on chronic, no alarm features. Mechanism of injury is low energy. Pain improved after getting to floor, begin 800 IBP and cyclobenzaprine prn. Patient instructed not to use nabumetone in combination with ibuprofen. Recommended PT but patient declined. Recommend follow up with back specialist she sees in [place]. (2) Depression Status: Chronic Hospital Course & Plan: On Effexor and Seroquel, continue on d/c. (3) Borderline personality disorder Status: Chronic Hospital Course & Plan: Continue Effexor and Seroquel. (4) Fibromyalgia Status: Chronic Hospital Course & Plan: Continue gabapentin, Effexor. (5) Obesity (BMI 30-39.9) Hospital Course & Plan: BMI 38.3, exacerbating back pain. Would benefit from weight loss. (6) Hypothyroidism Status: Acute Hospital Course & Plan: Continue thyroid replacement. Departure Weight (Pounds): 252 Weight (Ounces): 2.0 Condition: Improved Discharge: Home Discharge Instructions Home Meds Active Scripts Ibuprofen (IBUPROFEN) 800 Mg Tablet, 800 MG PO Q8H Y for PAIN for 7 Days, #20 TAB Don not take while taking any other NSAID medications. Do not use your nabumetone while on this medication. Prov:ANGELY GAN DO 03/23/18 Cyclobenzaprine Hcl (CYCLOBENZAPRINE HCL) 10 Mg Tablet, 10 MG PO BID Y for PAIN for 10 Days, #20 TAB Prov:ANGELY GAN DO 03/23/18 Pantoprazole Sodium (PANTOPRAZOLE SODIUM) 40 Mg Tablet.dr, 1 TAB PO DAILY, #60 TAB 6 Refills Take 1 tablet every morning 1/2 hour before eating Prov:SARAH MARIA MD 08/03/17 Reported Medications Gabapentin (GABAPENTIN) 300 Mg Capsule, 600 MG PO HS, CAPSULE 03/22/18 Gabapentin (GABAPENTIN) 100 Mg Capsule, 100 MG PO QAM, CAPSULE 03/22/18 Linaclotide (LINZESS) 145 Mcg Capsule, 145 MCG PO QWEEK, CAPSULE 03/22/18 Venlafaxine Hcl (EFFEXOR XR) 150 Mg Cap.er.24h, 300 MG PO QDAY 03/22/18 Quetiapine Fumarate (SEROQUEL) 50 Mg Tablet, 50 MG PO QHS 07/17/17 Nabumetone (NABUMETONE) 500 Mg Tablet, 500 MG PO BID, #20 TAB 07/11/17 Vits W-Ca,Fe,Fa(<1MG) ( VITAMINS) 1 Each Tablet, 1 EACH PO DAILY, TAB 07/10/17 Liothyronine Sodium (CYTOMEL) 25 Mcg Tablet, 12.5 MCG PO QAM, #30 1 Refill 09/11/16 Modafinil (PROVIGIL) 100 Mg Tablet, 200 MG PO DAILY 03/10/16 Albuterol Sulfate (Proair Hfa) 8.5 Gm Aer.w.adap, 8.5 GM IH PRN 10/25/12 Discontinued Reported Medications Tramadol Hcl (TRAMADOL HCL) 50 Mg Tablet, 50 MG PO Q6H, TAB 03/22/18 [place]-3/Dha/Epa/Fish Oil (Fish Oil 1,000 mg Softgel) 1,000 Mg (120 Mg-180 Mg) Capsule, 1 CAP PO QDAY 07/10/17 Venlafaxine Hcl (EFFEXOR XR) 75 Mg Cap.er.24h, 300 MG PO QDAY 02/18/14 Gabapentin (Neurontin) 100 Mg Cap, 300 MG PO, 0 Refills 600MG IN AM AND 1200MG PM 07/12/11 Special Instructions: Follow up with PCP within one week. Copies to: SANDEE LAWSNO Venous Thromboembolism Antithrombotics Is Pt On Any Antithrombotics?: Yes ANGELY GAN DO Mar 23, 2018 08:06
[2018-03-23] MEDS ORDERED: PANTOPRAZOLE SOD 40 MG TABEC PO SCH (09:00)
[2018-03-23] MEDS ORDERED: PATCH REMOVAL 1 EA TP SCH (09:00)
[2018-03-23] MEDS ORDERED: VENLAFAXINE XR 75 MG CAPCR PO SCH (09:00)
[2018-03-23] MEDS ORDERED: ENOXAPARIN 40 MG/0.4ML SYR SC SCH (09:00)
[2018-03-23] MEDS ORDERED: GABAPENTIN 100 MG CAP PO SCH (09:00)
[2018-03-23] MEDS ORDERED: LIOTHYRONINE SODIUM 25 MCG TAB PO SCH (09:00)
== END 2018-03-23 08:00 | disposition home or self-care (01) ==
LOC: ER 12:19 → MED 15:36
PROVIDERS: ADMIT Internal Medicine; ATTEND Internal Medicine
DX: M54.41 Lumbago with sciatica, right side (principal); F32.9 Major depressive disorder, single episode, unspecified; F60.3 Borderline personality disorder; M79.7 Fibromyalgia; E66.9 Obesity, unspecified; E03.9 Hypothyroidism, unspecified
CPT/HCPCS: 96361; 96372; 96374; 96375; 96376; 97161; 97165; 99284; A9270; G0378; J1630; J1650; J1885; J3360; J7040; J3535

== ENCOUNTER → 2018-03-22 | Outpatient (CLI) | payer MEDICARE, MEDICAID ==
[2016-09-03 14:14] VITALS: BMI 41.0
[~2018-03-22] MED LIST changes: +GABA-547 PO; +IBUP800T37 PO; +LINA145C PO; +TRAM-420 PO; +VENL150C61 PO
== END ==
LOC: AMB 11:52
PROVIDERS: ATTEND Nurse Practitioner
DX: M54.9 Dorsalgia, unspecified (principal); R53.1 Weakness
CPT/HCPCS: A0425; A0427

== ENCOUNTER → 2018-04-12 | Outpatient (CLI) | payer MEDICARE, MEDICAID ==
[2016-09-03 14:14] VITALS: BMI 41.0
[~2018-04-12] MED LIST changes: +GABA-547 PO; +IBUP600T22 PO; +IBUP800T37 PO; +LEVO25TA57 PO; +LINA145C PO; +REGADENOSON 0.4 MG/5 ML SYR ONE; +TRAM-420 PO; +VENL150C61 PO; +[UNRECOGNIZED DRUG - CODE] PO
--- NOTE | 2018-04-12 14:56 | RT STRESS TEST REPORT ---
FACILITY: [facility] PATIENT NAME: SHERI REILLY : [id number] MR: [id number] V: [id number] EXAM DATE: ORDERING PHYSICIAN: KAITLIN CHRISTOPHER TECHNOLOGIST: Lilliam Acquisition Time: 2018-04-12 14:38:29 Total Exercise Time: 00:01:00 Test Indications: Palpitations Medications: see nuc med sheet Protocol: LEXISCAN Max HR: 085 BPM 55% of Pred: 152 BPM Max BP: 160/068 mmHG Max Work Load: 1.0 METS Stress was performed using Lexiscan protocol. She experienced some chest tightness, dyspnea, headache with the infusion. These symptoms resolved early in recovery. No significant EKG changes were noted. She did have frequent ventricular ectopy w ith some trigeminy prior to infusion and throughout the study. No other dysrhythmias were noted. Await Myoview images. Confirmed by MICHAEL BUTLER ([id number]) on 04/12/2018 2:54:57 PM Referred By: Carline Martinez Overread By: MICHAEL BUTLER
--- NOTE | 2018-04-12 16:46 | RADIOLOGY IMAGING REPORT ---
[facility] PATIENT NAME: Lisbet Staples : 1950 MR: [id number] V: [id number] EXAM DATE: ORDERING PHYSICIAN: KAITLIN CHRISTOPHER TECHNOLOGIST: Location: [facility] [place] Patient: Lisbet Staples : 1950 Visit/Account:[id number] Date of Sevice: 04/12/2018 EXAMINATION: Single isotope SPECT imaging with Regadenoson infusion and gated SPECT imaging. DATE OF EXAMINATION: April 12, 2018. DATE OF INTERPRETATION: April 12, 2018. REQUESTING PHYSICIAN: KAITLIN CHRISTOPHER. INDICATION: The patient is a 68-year-old female evaluated for CAD. PROCEDURE: After informed consent the patient received an intravenous injection of 11.8 mCi of Tc-99 m sestamibi followed at an appropriate time interval by rest imaging. The patient then subsequently received an intravenous infusion of 0.4 mg of Regadenoson per protocol without complication. Resting heart rate was 68 bpm with a peak heart rate of 83 bpm. Blood pressure at rest was 158 / 71 and fol lowing infusion was 160 / 68. Baseline EKG demonstrates normal sinus rhythm with occasional PVCs. T here were no diagnostic EKG changes of ischemia following infusion. Symptoms were nonspecific. The patient then received an intravenous injection of 30.2 mCi of Tc-99m sestamibi followed by stress sudheer ging. RAW DATA: Examination of the summed raw data revealed a good quality study. MYOCARDIAL PERFUSION: The tomographic images demonstrate normal perfusion both at rest and at stress . GATED IMAGES: The gated images demonstrate an ejection fraction of 59% with normal wall motion. IMPRESSION: 1. Baseline EKG shows normal sinus rhythm and there are no significant changes during the infusion. Raw imaging does show breast attenuation. The perfusion however appears normal otherwise. 2. Normal myocardial perfusion scan. 3. Normal LV systolic function; LVEF 59%. 4. Based on the results of this exam, the patient appears to be at low risk for future cardiovascular events. Report Dictated By: Aubrey Lilly MD at 04/12/2018 4:39 PM Report E-Signed By: Aubrey Lilly MD at 04/12/2018 4:42 PM WSN:[id number]
== END ==
LOC: NUC 01:30
PROVIDERS: ATTEND Internal Medicine Cardiovascular Disease
DX: I49.8 Other specified cardiac arrhythmias (principal)
CPT/HCPCS: 78452; 93017; A9500; J2785

== ENCOUNTER 2018-04-13 00:11 | Day surgery (SDC) | payer MEDICARE, MEDICAID ==
[2016-09-03 14:14] VITALS: Ht 172.7 cm; Wt 113.9 kg
--- NOTE | 2018-04-12 10:11 | History & Physical ---
History of Present Illness Chief Complaint Postmenopausal bleeding History of Present Illness 68-year-old presents with continued postmenopausal bleeding. She was originally evaluated on 02/11/18 with complaints of this bleeding. She continues to have off-and-on spotting. During her evaluation, she had a benign endometrial biopsy. An ultrasound performed revealed 2 anechoic lesions within the endometrium which was irregular and heterogenous measuring 8.8 mm. History Obstetrical History: . Hx 3 SVDs and 2 cesareans. Past Medical History: PMH: Migraines, hypertension, asthma, sleep apnea (uses CPAP), GERD, bipolar, depression (hx 7 suicide attempts), History of difficulties with anesthesia PSH: Tonsillectomy, appendectomy, cholecystectoy, x 2, tubal ligation, left knee replacement, skin cancer removal Allergies: Coded Allergies: Penicillins (Verified Allergy, Mild, 04/11/18) Sulfa (Sulfonamide Antibiotics) (Verified Allergy, Mild, 04/11/18) topiramate (Verified Allergy, Mild, 04/11/18) latex (Verified Allergy, Unknown, 04/11/18) erythromycin base (Verified Adverse Reaction, Intermediate, NAUSEA/ VOMITING, 04/11/18) Social History: Pt is single. She is unemployed. She denies T/E/D. Family History: FH: cancer FATHER, Onset:50's - 60 BROTHER OR SISTER BROTHER OR SISTER BROTHER OR SISTER BROTHER OR SISTER FH: diabetes mellitus FATHER, Onset:50's - 60 FH: heart disease FATHER, Onset:40's - 50 MOTHER, Onset:50's - 60 BROTHER OR SISTER Med Rec Home Meds Active Scripts Pantoprazole Sodium (PANTOPRAZOLE SODIUM) 40 Mg Tablet.dr, 1 TAB PO DAILY, #60 TAB 6 Refills Take 1 tablet every morning 1/2 hour before eating Prov:SARAH MARIA MD 08/03/17 Reported Medications Lysine (LYSINE) 1,000 Mg Tablet, 1000 MG PO DAILY 04/11/18 Levothyroxine Sodium (SYNTHROID) 25 Mcg Tablet, 0.5 TAB PO QDAY 04/11/18 Gabapentin (GABAPENTIN) 300 Mg Capsule, 500 MG PO HS, CAPSULE 03/22/18 Gabapentin (GABAPENTIN) 100 Mg Capsule, 100 MG PO QAM, CAPSULE 03/22/18 Venlafaxine Hcl (EFFEXOR XR) 150 Mg Cap.er.24h, 300 MG PO QDAY 03/22/18 Quetiapine Fumarate (SEROQUEL) 50 Mg Tablet, 50 MG PO QHS 07/17/17 Nabumetone (NABUMETONE) 500 Mg Tablet, 500 MG PO BID, #20 TAB 07/11/17 Vits W-Ca,Fe,Fa(<1MG) ( VITAMINS) 1 Each Tablet, 1 EACH PO DAILY, TAB 07/10/17 Modafinil (PROVIGIL) 100 Mg Tablet, 200 MG PO DAILY 03/10/16 Albuterol Sulfate (Proair Hfa) 8.5 Gm Aer.w.adap, 8.5 GM IH PRN 10/25/12 Discontinued Reported Medications Linaclotide (LINZESS) 145 Mcg Capsule, 145 MCG PO QWEEK, CAPSULE 03/22/18 Liothyronine Sodium (CYTOMEL) 25 Mcg Tablet, 12.5 MCG PO QAM, #30 1 Refill 09/11/16 Review of Systems Constitutional: Weight Loss, Night Sweats, No Fever, No Chills Neurological: No Syncope, No Confusion Eyes: Vision Change ENT: No Hearing Loss, No Sinus Congestion Cardiovascular: No Chest Pain, No Palpitations Respiratory: No Shortness of Breath, No Cough Gastrointestinal: No Nausea, No Vomiting, No Diarrhea, Constipation Genitourinary: No Dysuria Musculoskeletal: No Pain Psychiatric: Depression Exam General Exam Vital Signs Pulse 80 BP 146/64 Resp 16 SaO2 93% on room air Weight 255# BMI 39 General Apperance: Alert/Awake/No Acute Distress Neuro: No Gross deficits Eyes: Normal Extraocular Movement & Vison Cardiovascular: Regular Rate and Rhythm Respiratory: No Respiratory Distress, Clear to Auscultation Abdomen: Soft, Non-Tender, Non-Distended : Normal Musculoskeletal: No Weakness/Pain Extremities: No Cyanosis,Clubbing or Edema Integumentary: Skin Intact without Lesions or Rash Psychological: Alert & Oriented X3, Appropriate Mood & Affect Medical Decision Making Data Points Endometrial biopsy 02/15/18: Scant glandular mucosa, suggestive of atrophy; Benign ectocervical tissue. Imaging Ultrasound/Imaging PATIENT NAME: Lisbet Staples : 1950 MR: [id number] V: [id number] EXAM DATE: ORDERING PHYSICIAN: FRANCISCO ONEIL TECHNOLOGIST: Location: [facility] Patient: Lisbet Staples : 1950 Visit/Account:[id number] Date of Sevice: 02/17/2018 TRANSVAGINAL NON-OB HISTORY: POSTMENOPAUSAL BLEEDING TECHNIQUE: Transvaginal ultrasound pelvis. COMPARISON: CT and pelvis August 12, 2017 FINDINGS: Uterus: ; 7.1 cm length x 3.2 cm AP x 4.7 cm transverse. Myometrium: Unremarkable. Endometrium: Appears irregular and heterogeneous. Two anechoic structures are seen within the endometrium one measuring 1 x 1 x 0.7 cm and one measuring 0.6 x 0.3 x 0.4 cm.; double thickness 8.8 mm. Incidentally noted is a section scar Cervix: Grossly negative. Ovaries: Right - 2.1 x 1.2 x 1.4 cm and contains two calcifications one measuring 4 mm in diameter one measuring 2 mm in diameter Left - 2 x 1.8 x 1.8 cm Blood flow is documented in each ovary by duplex Doppler ultrasound. Adnexa: Grossly unremarkable. Free pelvic fluid: None. IMPRESSION: The endometrium appears heterogeneous and irregular containing two anechoic structures. Both ovaries appear atrophic. The right ovary contains two coarse calcifications Report Dictated By: Kalee Hsu MD at 02/17/2018 1:54 PM Report E-Signed By: Kalee Hsu MD at 02/17/2018 1:58 PM Pre-Admit Course Medical Record Review: Yes Assessment and Plan Problems: (1) Postmenopausal bleeding Assessment & Plan: 68-year-old presents with continued postmenopausal bleeding. She continues to have off-and-on spotting. During her evaluation, she had a benign endometrial biopsy. An ultrasound performed revealed 2 anechoic lesions within the endometrium which was irregular and heterogenous measuring 8.8 mm. Due to an inadequate sampling of her endometrium, it has been recommended that she proceed with a hysteroscopic dilation and curettage. She is admitted for this procedure. We have discussed the risks, benefits and alternatives. She is scheduled for 04/13/18. FRANCISCO ONEIL MD Apr 12, 2018 10:11
[~2018-04-13] VITALS: Ht 172.7 cm; Wt 113.9 kg
[2018-04-13] VITALS (9 sets, daily range): BP systolic 78–119; BP diastolic 52–70
[~2018-04-13 00:11] MED LIST changes: -IBUP600T22 PO; -REGADENOSON 0.4 MG/5 ML SYR ONE
[2018-04-13] MEDS ORDERED: DEXAMETHASONE SOD PHOS 10MG/ML ONE (08:38)
[2018-04-13] MEDS ORDERED: LIDOCAINE MPF 1% 5 ML VIAL ONE (08:38)
[2018-04-13] MEDS ORDERED: PROPOFOL EMUL(*) 10MG/ML 20 ML 60 ML ONE (08:38)
[2018-04-13] MEDS ORDERED: fentaNYL CITR 100 MCG/2 ML AMP ONE (08:38)
[2018-04-13] MEDS ORDERED: ONDANSETRON 4 MG/2 ML VIAL ONE (08:38)
[2018-04-13] MEDS ORDERED: SCOPOLAMINE 1.5 MG PATCH TD ONE (09:00)
[2018-04-13] MEDS ORDERED: FAMOTIDINE(*) 20MG/50ML PREMIX 50 ML IVPB ONE (09:00)
[2018-04-13 09:01] LABS: PLATELET COUNT, AUTOMATED 258 K/uL (150-450)
[2018-04-13] MEDS ORDERED: MIDAZOLAM 2 MG/2 ML VIAL IVP PRN (09:15)
[2018-04-13] MEDS ORDERED: NORMOSOL R SOLN(*) 1000 ML BAG 1,000 ML IV PRN (09:15)
[2018-04-13] MEDS ORDERED: LIDOCAINE/SOD BICARB 8.4% SYR ID ONE (09:15)
--- NOTE | 2018-04-13 09:56 | Post Operative Note ---
Operative Note - RIB [employer]ILDER Operative Day Date: Apr 13, 2018 Time: 09:55 Physicians Surgeon: Alee Anesthesia: General LMA, Sunny Diagnosis Pre-Op Diagnosis: Postmenopausal bleeding Post-Op Diagnosis: Same Procedure Findings: Endometrial polyp, atrophic endometrium Procedure(s): Hscope D&C Specimen Removed:(Maybe N/A): Endometrial polyp and curettings Fluids Estimated Blood Loss: Minimal FRANCISCO ONEIL MD Apr 13, 2018 09:56
[2018-04-13] MEDS ORDERED: LR(*) 1000 ML BAG 1,000 ML IV ONE (09:59)
[2018-04-13] MEDS ORDERED: METOCLOPRAMIDE 10 MG/2 ML SDV IVP PRN (10:00)
[2018-04-13] MEDS ORDERED: IBUP600T22 PO (10:01)
[2018-04-13] MEDS ORDERED: LOR5/325 PO (10:01)
--- NOTE | 2018-04-13 10:03 | Short(Outpt) Discharge Summary ---
Discharge Summary Reason for Hosp/Final Diag: (1) Postmenopausal bleeding Hospital Course & Plan: 68-year-old presents with continued postmenopausal bleeding. S/p hysteroscopic D&C. Departure Discharge to: Home, Self Care Discharge Instructions Home Meds Active Scripts Hydrocodone Bit/Acetaminophen (HYDROCODON-ACETAMINOPHEN 5-325) 1 Each Tablet, 1 EACH PO Q4-6H PRN for pain, #10 TAB 0 Refills Prov:FRANCISCO ONEIL MD 04/13/18 Pantoprazole Sodium (PANTOPRAZOLE SODIUM) 40 Mg Tablet.dr, 1 TAB PO DAILY, #60 TAB 6 Refills Take 1 tablet every morning 1/2 hour before eating Prov:SARAH MARIA MD 08/03/17 Reported Medications Lysine (LYSINE) 1,000 Mg Tablet, 1000 MG PO DAILY 04/11/18 Levothyroxine Sodium (SYNTHROID) 25 Mcg Tablet, 0.5 TAB PO QDAY 04/11/18 Gabapentin (GABAPENTIN) 300 Mg Capsule, 500 MG PO HS, CAPSULE 03/22/18 Gabapentin (GABAPENTIN) 100 Mg Capsule, 100 MG PO QAM, CAPSULE 03/22/18 Venlafaxine Hcl (EFFEXOR XR) 150 Mg Cap.er.24h, 300 MG PO QDAY 03/22/18 Quetiapine Fumarate (SEROQUEL) 50 Mg Tablet, 50 MG PO QHS 07/17/17 Nabumetone (NABUMETONE) 500 Mg Tablet, 500 MG PO BID, #20 TAB 07/11/17 Vits W-Ca,Fe,Fa(<1MG) ( VITAMINS) 1 Each Tablet, 1 EACH PO DAILY, TAB 07/10/17 Modafinil (PROVIGIL) 100 Mg Tablet, 200 MG PO DAILY 03/10/16 Albuterol Sulfate (Proair Hfa) 8.5 Gm Aer.w.adap, 8.5 GM IH PRN 10/25/12 Discontinued Reported Medications Linaclotide (LINZESS) 145 Mcg Capsule, 145 MCG PO QWEEK, CAPSULE 03/22/18 Liothyronine Sodium (CYTOMEL) 25 Mcg Tablet, 12.5 MCG PO QAM, #30 1 Refill 09/11/16 Follow up Referrals: TE[employer]OCK[employer] ENGINE - [place] Two We[place] @ [facility] with FRANCISCO ONEIL MD Diet: Regular Activity: As Tolerated FRANCISCO ONEIL MD Apr 13, 2018 10:03
--- NOTE | 2018-04-13 11:57 | OPERATIVE REPORT 1 ---
EVENT DATE: April 13, 2018 SURGEON: Taya Vickers M.D. ANESTHESIOLOGIST: Richard Correa M.D. ANESTHESIA: General LMA. PREOPERATIVE DIAGNOSIS Postmenopausal bleeding. POSTOPERATIVE DIAGNOSIS 1. Postmenopausal bleeding 2. Endometrial polyp. FINDINGS Endometrial polyp and atrophic endometrium. PROCEDURE PERFORMED Hysteroscopic polypectomy with dilatation and curettage. SPECIMENS REMOVED Endometrial polyp and curettings. ESTIMATED BLOOD LOSS Minimal. INDICATIONS This patient is a 68-year-old, 9, para 5 who presents with continued postmenopausal bleeding. She was originally evaluated on February 11, 2018 with complaints of bleeding and was found to have an inadequate sampling on endometrial biopsy. An ultrasound revealed two anechoic lesions of the endometrium, which were irregular with a heterogenous lining of 8.8 mm. She, therefore, was consented for a diagnostic hysteroscopy and curettage. DESCRIPTION OF PROCEDURE The patient was positively identified and taken to the operating room. She was placed under general anesthesia and then placed in the dorsal lithotomy position. She was then prepped and draped in the usual fashion for a vaginal procedure. Initially, her bladder was drained of 5 mL of clear yellow urine. A robert speculum was placed to visualize the cervix, which was multiparous, atrophic and without lesion. The anterior lip of the cervix was grasped with an Allis clamp. The cervix was serially dilated to 7 mm using Gabby dilators without difficulty. The hysteroscope was then assembled and primed. The hysteroscope was then introduced under direct visualization. Examination of the endometrial cavity revealed what appeared to be an anterior endometrial polyp with significant atrophy within the remainder of the endometrium. The MyoSure LITE device was then assembled and utilized to excise this lesion as well as sample throughout the endometrial cavity. Once this was achieved, the hysteroscope was removed. The Allis clamp was removed as well as the speculum. The patient tolerated the procedure well and recovered in the Post-Anesthesia Care Unit. All sponge counts were correct at the end of the procedure. [facility]
[2018-04-13] MEDS ORDERED: IBUPROFEN 800 MG TAB PO SCH (17:00)
[2018-04-16] MEDS ORDERED: PATCH REMOVAL 1 EA TP SCH (09:00)
== END 2018-04-13 11:05 | disposition home or self-care (01) ==
LOC: OR 00:11
PROVIDERS: ATTEND Obstetrics & Gynecology
DX: N95.0 Postmenopausal bleeding (principal); N84.0 Polyp of corpus uteri
CPT/HCPCS: 36415; 58558; 85025; 88305; A9270; J1100; J2001; J2250; J2405; J2704; J3010

== ENCOUNTER → 2018-04-28 | Outpatient (CLI) | payer MEDICARE, MEDICAID ==
[2016-09-03 14:14] VITALS: BMI 41.0
[~2018-04-28] MED LIST changes: +IBUP600T22 PO
== END ==
LOC: LAB 12:15
PROVIDERS: ATTEND Internal Medicine Cardiovascular Disease
DX: E78.00 Pure hypercholesterolemia, unspecified (principal); R06.02 Shortness of breath
CPT/HCPCS: 36415; 82465; 83718; 84478

== ENCOUNTER → 2018-07-27 | Outpatient (CLI) | payer MEDICARE, MEDICAID ==
[2016-09-03 14:14] VITALS: BMI 41.0
[~2018-07-27] MED LIST changes: -HYDR-4309 PO; +HYDR-653 PO; -METF-411 PO; +METF-450 PO
== END ==
LOC: LAB 14:17
PROVIDERS: ATTEND Internal Medicine Cardiovascular Disease
DX: E78.00 Pure hypercholesterolemia, unspecified (principal)
CPT/HCPCS: 36415; 82465; 83718; 84478

== ENCOUNTER 2018-12-15 18:54 | Emergency (ER) | payer MEDICARE, MEDICAID ==
[2016-09-03 14:14] VITALS: Wt 116.6 kg
--- NOTE | 2018-12-15 18:59 | ER Report ---
History and Physical Time Seen By MD: 18:56 HPI/ROS CHIEF COMPLAINT: Feeling sick HISTORY OF PRESENT ILLNESS: 68-year-old female presents not feeling well. She notes she feels out of sorts. She describes symptoms such as abdominal bloating and feels like she drank a soda and she is unable to belch. She describes epigastric pressure up into her chest. She notes some nausea but no diaphoresis, shortness of breath or dizziness. She also complains of pain to the left side of her neck. She feels like there is a foreign body lodged in her neck. She notes some soreness there. On palpation. She's had no rhinitis, sore throat or coughing. He further denies ear pain. REVIEW OF SYSTEMS: Respiratory: No cough, no dyspnea. Cardiovascular: No chest pain, no palpitations. Gastrointestinal: As above Musculoskeletal: No back pain. Allergies: Coded Allergies: Penicillins (Verified Allergy, Mild, 12/15/18) Sulfa (Sulfonamide Antibiotics) (Verified Allergy, Mild, 12/15/18) topiramate (Verified Allergy, Mild, 12/15/18) latex (Verified Allergy, Unknown, 12/15/18) erythromycin base (Verified Adverse Reaction, Intermediate, NAUSEA/VOMITING, 12/15/18) Home Meds Active Scripts Pantoprazole Sodium (PANTOPRAZOLE SODIUM) 40 Mg Tablet.dr, 1 TAB PO DAILY, #60 TAB 6 Refills Take 1 tablet every morning 1/2 hour before eating Prov:SARAH MARIA MD 09/10/18 Reported Medications Cyclobenzaprine Hcl (CYCLOBENZAPRINE HCL) 10 Mg Tablet, 10 MG PO QHS PRN for MUSCLE SPASMS, #9 TAB 12/15/18 Magnesium Citrate (MAGNESIUM CITRATE) 100 Mg Tablet, 100 MG PO QDAY 12/15/18 Cinnamon Bark (CINNAMON) 500 Mg Capsule, 500 MG PO QDAY, CAPSULE 12/15/18 Lysine (LYSINE) 1,000 Mg Tablet, 1000 MG PO DAILY 04/11/18 Levothyroxine Sodium (SYNTHROID) 25 Mcg Tablet, 0.5 TAB PO QDAY 04/11/18 Gabapentin (GABAPENTIN) 300 Mg Capsule, 500 MG PO HS, CAPSULE 03/22/18 Gabapentin (GABAPENTIN) 100 Mg Capsule, 100 MG PO QAM, CAPSULE 03/22/18 Venlafaxine Hcl (EFFEXOR XR) 150 Mg Cap.er.24h, 300 MG PO QDAY 03/22/18 Nabumetone (NABUMETONE) 500 Mg Tablet, 500 MG PO BID, #20 TAB 07/11/17 Vits W-Ca,Fe,Fa(<1MG) ( VITAMINS) 1 Each Tablet, 1 EACH PO DAILY, TAB 07/10/17 Modafinil (PROVIGIL) 100 Mg Tablet, 200 MG PO DAILY 03/10/16 Albuterol Sulfate (Proair Hfa) 8.5 Gm Aer.w.adap, 8.5 GM IH PRN 10/25/12 Discontinued Reported Medications Quetiapine Fumarate (SEROQUEL) 50 Mg Tablet, 50 MG PO QHS 07/17/17 Past Medical/Surgical History The patient has a past medical and surgical history of polymyalgia rheumatica, migraines, cardiomyopathy, heart attack, palpitations, hypercholesterolemia, as thma, PE, colitis, GERD, arthritis, fibromyalgia, John-Sotelo, chronic back pain, wears glasses, prediabetic, benign cyst on thyroid, depression, anxiety, borderline personality, suicide attempt, cervical cancer, cardiac stent placed, appendectomy, cholecystectomy, tubal ligation, partial dentures, carcinoma removed from back. Reviewed Nurses Notes: Yes Old Medical Records Reviewed: Yes Hx Smoking: No Smoking Status: Never Smoker Exposure to Second Hand Smoke?: No Hx Substance Use Disorder: No Hx Alcohol Use: No Constitutional Vital Sign - Last 24 Hours 12/15/18 12/15/18 12/15/18 12/15/18 19:00 19:09 19:24 19:30 Temp 98.6 Pulse 77 76 64 Resp 24 15 16 B/P (MAP) 141/69 134/90 (105) Pulse Ox 91 92 92 O2 Delivery Room Air 12/15/18 12/15/18 12/15/18 12/15/18 19:39 19:54 20:00 20:20 Pulse 72 74 81 Resp 22 7 B/P (MAP) 138/72 (94) Pulse Ox 86 87 88 12/15/18 12/15/18 12/15/18 12/15/18 20:30 20:33 20:35 20:50 Pulse 78 76 Resp 17 34 B/P (MAP) 137/120 (126) 136/63 (87) Pulse Ox 89 90 12/15/18 12/15/18 12/15/18 12/15/18 21:05 21:10 21:25 21:30 Pulse 81 76 82 Resp 19 21 26 B/P (MAP) 141/58 (85) Pulse Ox 87 88 12/15/18 12/15/18 12/15/18 21:40 21:55 22:00 Pulse 81 96 Resp 23 33 B/P (MAP) 157/69 (98) Pulse Ox 82 Physical Exam General Appearance: The patient is alert, has no immediate need for airway protection and no current signs of toxicity. Vital signs stable, afebrile, p ulse ox normal, no acute distress HEENT: Pupils equal and round no injection. TMs normal, oropharynx without redness or exudate, mucous. Membranes are moist Respiratory: Chest is non tender, lungs are clear to auscultation. No wheezing or rails, no chest wall tenderness Cardiac: regular rate and rhythm Gastrointestinal: Abdomen is soft and non tender. Mild epigastric distention, no tenderness, rebound guarding or masses, no masses, bowel sounds normal. Musculoskeletal: Neck: Neck is supple and non tender. Palpation of the left side of the neck reveals no lymphadenopathy, there is some mild tenderness. There is no palpable mass Extremities have full range of motion and are non tender. No edema, no calf tenderness Skin: No rashes or lesions. DIFFERENTIAL DIAGNOSIS: After history and physical exam differential diagnosis was considered for abdominal pain including but not limited to appendicitis, cholecystitis, gastritis and urinary tract infection. Medical Decision Making Data Points Result Diagram: 12/15/18191712/15/181917 Laboratory Hematology Test 12/15/18 19:15 12/15/18 19:18 12/15/18 20:15 Whole Blood Glucose 109 mg/DL (75-110) Red Blood Count 4.72 M/uL (4.17-5.56) Mean Corpuscular Volume 85.7 fL (80.0-96.0) Mean Corpuscular Hemoglobin 29.1 pg (26.0-33.0) Mean Corpuscular Hemoglobin Concent 33.9 g/dL (32.0-36.0) Red Cell Distribution Width 14.1 % (11.5-14.5) Mean Platelet Volume 10.6 fL (7.2-11.1) Neutrophils (%) (Auto) 66.2 % (39.4-72.5) Lymphocytes (%) (Auto) 23.1 % (17.6-49.6) Monocytes (%) (Auto) 7.3 % (4.1-12.4) Eosinophils (%) (Auto) 1.7 % (0.4-6.7) Basophils (%) (Auto) 1.7 % (0.3-1.4) Nucleated RBC Relative Count (auto) 0.0 /100WBC Neutrophils # (Auto) 7.0 K/uL (2.0-7.4) Lymphocytes # (Auto) 2.4 K/uL (1.3-3.6) Monocytes # (Auto) 0.8 K/uL (0.3-1.0) Eosinophils # (Auto) 0.2 K/uL (0.0-0.5) Basophils # (Auto) 0.2 K/uL (0.0-0.1) Nucleated RBC Absolute Count (auto) 0.00 K/uL Sodium Level 136 mmol/L (137-145) Potassium Level 4.0 mmol/L (3.5-5.0) Chloride Level 103 mmol/L (98-107) Carbon Dioxide Level 24 mmol/L (22-31) Blood Urea Nitrogen 20 mg/dl (7-18) Creatinine 0.70 mg/dl (0.52-1.04) Glomerular Filtration Rate Calc > 60.0 Random Glucose 99 mg/dl (75-110) Calcium Level 9.1 mg/dl (8.4-10.2) Total Bilirubin 0.4 mg/dl (0.2-1.3) Aspartate Amino Transf (AST/SGOT) 26 U/L (0-35) Alanine Aminotransferase (ALT/SGPT) 25 U/L (0-56) Alkaline Phosphatase 164 U/L (0-126) Troponin I < 0.012 ng/ml Total Protein 7.8 g/dl (6.3-8.2) Albumin 4.3 g/dl (3.5-5.0) Amylase Level 53 U/L (0-110) Lipase 104 U/L (23-300) Urine Color Yellow Urine Clarity Clear Urine pH 5.0 pH (4.8-9.5) Urine Specific [place] 1.019 Urine Protein Negative mg/dL (NEGATIVE) Urine Glucose (UA) Negative mg/dL (NEGATIVE) Urine Ketones Negative mg/dL (NEGATIVE) Urine Blood Negative (NEGATIVE) Urine Nitrite Negative (NEGATIVE) Urine Bilirubin Negative (NEGATIVE) Urine Urobilinogen Negative mg/dL (0.2-1.9) Urine Leukocyte Esterase Negative (NEGATIVE) Urine RBC None /HPF (0-2/HPF) Urine WBC 1 /HPF (0-5/HPF) Urine Squamous Epithelial Cells None /LPF (</=FEW) Urine Bacteria Negative /HPF (NONE-FEW) Urine Mucus None /HPF (NONE-FEW) Chemistry Test 12/15/18 19:15 12/15/18 19:18 12/15/18 20:15 Whole Blood Glucose 109 mg/DL (75-110) White Blood Count 10.6 k/uL (4.5-11.0) Red Blood Count 4.72 M/uL (4.17-5.56) Hemoglobin 13.7 g/dL (12.0-16.0) Hematocrit 40.4 % (34.0-47.0) Mean Corpuscular Volume 85.7 fL (80.0-96.0) Mean Corpuscular Hemoglobin 29.1 pg (26.0-33.0) Mean Corpuscular Hemoglobin Concent 33.9 g/dL (32.0-36.0) Red Cell Distribution Width 14.1 % (11.5-14.5) Platelet Count 209 K/uL (150-450) Mean Platelet Volume 10.6 fL (7.2-11.1) Neutrophils (%) (Auto) 66.2 % (39.4-72.5) Lymphocytes (%) (Auto) 23.1 % (17.6-49.6) Monocytes (%) (Auto) 7.3 % (4.1-12.4) Eosinophils (%) (Auto) 1.7 % (0.4-6.7) Basophils (%) (Auto) 1.7 % (0.3-1.4) Nucleated RBC Relative Count (auto) 0.0 /100WBC Neutrophils # (Auto) 7.0 K/uL (2.0-7.4) Lymphocytes # (Auto) 2.4 K/uL (1.3-3.6) Monocytes # (Auto) 0.8 K/uL (0.3-1.0) Eosinophils # (Auto) 0.2 K/uL (0.0-0.5) Basophils # (Auto) 0.2 K/uL (0.0-0.1) Nucleated RBC Absolute Count (auto) 0.00 K/uL Glomerular Filtration Rate Calc > 60.0 Calcium Level 9.1 mg/dl (8.4-10.2) Total Bilirubin 0.4 mg/dl (0.2-1.3) Aspartate Amino Transf (AST/SGOT) 26 U/L (0-35) Alanine Aminotransferase (ALT/SGPT) 25 U/L (0-56) Alkaline Phosphatase 164 U/L (0-126) Troponin I < 0.012 ng/ml Total Protein 7.8 g/dl (6.3-8.2) Albumin 4.3 g/dl (3.5-5.0) Amylase Level 53 U/L (0-110) Lipase 104 U/L (23-300) Urine Color Yellow Urine Clarity Clear Urine pH 5.0 pH (4.8-9.5) Urine Specific [place] 1.019 Urine Protein Negative mg/dL (NEGATIVE) Urine Glucose (UA) Negative mg/dL (NEGATIVE) Urine Ketones Negative mg/dL (NEGATIVE) Urine Blood Negative (NEGATIVE) Urine Nitrite Negative (NEGATIVE) Urine Bilirubin Negative (NEGATIVE) Urine Urobilinogen Negative mg/dL (0.2-1.9) Urine Leukocyte Esterase Negative (NEGATIVE) Urine RBC None /HPF (0-2/HPF) Urine WBC 1 /HPF (0-5/HPF) Urine Squamous Epithelial Cells None /LPF (</=FEW) Urine Bacteria Negative /HPF (NONE-FEW) Urine Mucus None /HPF (NONE-FEW) Urinalysis Test 12/15/18 20:15 Urine Color Yellow Urine Clarity Clear Urine pH 5.0 pH (4.8-9.5) Urine Specific [place] 1.019 Urine Protein Negative mg/dL (NEGATIVE) Urine Glucose (UA) Negative mg/dL (NEGATIVE) Urine Ketones Negative mg/dL (NEGATIVE) Urine Blood Negative (NEGATIVE) Urine Nitrite Negative (NEGATIVE) Urine Bilirubin Negative (NEGATIVE) Urine Urobilinogen Negative mg/dL (0.2-1.9) Urine Leukocyte Esterase Negative (NEGATIVE) Urine RBC None /HPF (0-2/HPF) Urine WBC 1 /HPF (0-5/HPF) Urine Squamous Epithelial Cells None /LPF (</=FEW) Urine Bacteria Negative /HPF (NONE-FEW) Urine Mucus None /HPF (NONE-FEW) EKG/Imaging EKG Interpretation 12 lead EK Rhythm: normal sinus rhythm Percival: normal QRS: normal,? Septal infarct with Q waves in V1 through V3 ST segments: normal, comparison to previous EKGs. and stress test 04/12/18, no significant morphologic change Imaging X-ray: Three-way abdomen was obtained. I viewed the images myself on the PACS system. My interpretation of the images is: Chest x-ray shows clear lung smart, normal mediastinum, no effusion, two-view abdomen shows constipation with fecal stasis in the ascending and descending colon with loops of dilated small bowel in the left upper quadrant with air-fluid levels of questionable significance. The radiologist interpretation had no clinically significant variation from this interpretation. Results: CT scan of the abdomen and pelvis with IV contrast was obtained. The results of the study are COMPUTED TOMOGRAPHY OF THE Abdomen and Pelvis with CONTRAST INDICATION: Chest and abdominal pain. TECHNIQUE: Contiguous axial 3.[address] images were obtained through the abdomen and pelvis after 75 cc [id number]. Coronal and sagittal reformatted images were submitted. COMPARISON: None. FINDINGS: Lung bases: The lung bases are clear. Liver and hepatic vasculature: No focal liver lesion. Gallbladder and bile ducts: Surgically absent gallbladder. Spleen: Normal spleen. Pancreas: Normal pancreas. Adrenals: Normal Kidneys, ureters and bladder: No hydronephrosis or obstruction. Decompressed bladder. No stones. Retroperitoneum and aorta: Mild aortic atherosclerosis. GI tract, mesentery and peritoneum: There are a few colonic diverticula. No findings of diverticulitis. No bowel obstruction. No free fluid or free air. Uterus and adnexa: Unremarkable uterus. Bones and soft tissues: No acute osseous abnormality. Multilevel disc, endplate, and facet arthropathy. IMPRESSION: 1. Diverticulosis without findings of diverticulitis. 2. Surgically absent gallbladder. 3. No definite evidence of acute intra-abdominal abnormality. One of the following dose optimization techniques was utilized in the performance of this exam: Automated exposure control; adjustment of the mA and/or kV according to the patient's size; or use of an iterative reconstructio n technique. Specific details can be referenced in the facility's radiology CT exam operational policy. The study was read by the radiologist. I viewed the images myself on the PACS system. ED Course/Re-evaluation Clinical Indication for ER IV: Hydration, IV Access ED Course Patient was admitted to an examination room. H&P was done. The differential diagnosis was considered. On clinical examination. Patient has a distended abdomen. There is some tenderness in the left upper quadrant. She is also complaining of neck pain on the left lateral neck. She thinks there is a foreign body sensation there. She notes no difficulty swallowing or breathing. Diagnostic evaluation is undertaken for her abdomen and epigastric pain and pressure. Laboratory studies are unremarkable. Three-way shows a dilated loop of small bowel with air-fluid levels. A CT scan of the abdomen and pelvis is ordered to rule out bowel obstruction. The CAT scan of the abdomen and pelvis is unremarkable. Results are discussed with the patient. She has gross fecal stasis of the ascending and descending colon. She is advised clear liquid diet for 48 hours with MiraLAX twice daily and a bottle of magnesium citrate laxative to evacuate her bowels. Patient's advised to use Tylenol and her NSAID for pain relief. Decision to Disposition Date: Dec 15, 2018 Decision to Disposition Time: 21:03 Depart Departure Latest Vital Signs Vital Signs Date Time Temp Pulse Resp B/P (MAP) Pulse Ox O2 Delivery O2 Flow Rate FiO2 12/15/18 22:00 157/69 (98) 12/15/18 21:55 96 33 12/15/18 21:40 82 12/15/18 19:00 98.6 Room Air Impression: Primary Impression: Abdominal pain Additional Impressions: Constipation Neck pain Condition: Improved Disposition: HOME OR SELF-CARE Referrals: SANDEE LAWSON (PCP) Patient Instructions: Abdominal Pain (ED), Clear Liquid Diet (ED), Constipation (ED) Additional Instructions: Follow clear liquid diet for 48 hours Take one capful of MiraLAX 2-3 times per day Take one bottle of magnesium citrate laxative Use Zofran to control nausea and vomiting Use Tylenol for pain relief Follow-up with her primary care if unimproved in 3-5 days. Problem Qualifiers Primary Impression: Abdominal pain Abdominal location: left upper quadrant Qualified Codes: R10.12 - Left upper quadrant pain Additional Impressions: Constipation Constipation type: unspecified constipation type Qualified Codes: K59.00 - Constipation, unspecified JAZMÍN COATS DO Dec 15, 2018 18:59
[2018-12-15] MEDS ORDERED: MAGN100T2 PO (19:09)
[2018-12-15] MEDS ORDERED: CINN500C12 PO (19:09)
[2018-12-15] MEDS ORDERED: CYCL10TA29 PO (19:09)
[2018-12-15] MEDS ORDERED: ONDANSETRON 4 MG/2 ML VIAL IVP ONE (19:15)
[2018-12-15] MEDS ORDERED: LIDOCAINE 2% VISC SLN 15ML UDC PO ONE (19:15)
[2018-12-15] MEDS ORDERED: MAG HYD/AL HYD/SIMETH 30ML UDC PO ONE (19:15)
[2018-12-15 19:34] LABS: PLATELET COUNT, AUTOMATED 209 K/uL (150-450)
--- NOTE | 2018-12-15 20:45 | RADIOLOGY IMAGING REPORT ---
FACILITY: [facility] - [place] PATIENT NAME: Lisbet Staples : 1950 MR: [id number] V: [id number] EXAM DATE: ORDERING PHYSICIAN: JAZMÍN COATS TECHNOLOGIST: Location: [facility] [place] Patient: Lisbet Staples : 1950 Visit/Account:[id number] Date of Sevice: 12/15/2018 Technique: ACUTE ABDOMEN SERIES 3 VIEW HISTORY: ABD PAIN Comparison studies: February 09, 2014, July 23, 2017 FINDINGS: No acute airspace consolidation. Cardiac silhouette is unremarkable. Surgical clips overlie the right upper quadrant. The bowel gas pattern is nonobstructive. Large stool volume is seen throug hout the colon. IMPRESSION: 1. No acute intra-abdominal process. 2. Large stool volume throughout the colon and rectal vault. Report Dictated By: Fredrick Norwood DO at 12/15/2018 8:39 PM Report E-Signed By: Fredrick Norwood DO at 12/15/2018 8:41 PM WSN:[id number]
[2018-12-15] MEDS ORDERED: IOPAMIDOL 76% 150 ML INFUS BTL 150 ML ONE (20:56)
--- NOTE | 2018-12-15 21:38 | RADIOLOGY IMAGING REPORT ---
FACILITY: [facility] - [place] PATIENT NAME: Lisbet Staples : 1950 MR: [id number] V: [id number] EXAM DATE: ORDERING PHYSICIAN: JAZMÍN COATS TECHNOLOGIST: Location: [facility] - [place] Patient: Lisbet Staples : 1950 Visit/Account:[id number] Date of Sevice: 12/15/2018 COMPUTED TOMOGRAPHY OF THE Abdomen and Pelvis with CONTRAST INDICATION: Chest and abdominal pain. TECHNIQUE: Contiguous axial 3.[address] images were obtained through the abdomen and pelvis after 75 c c [id number]. Coronal and sagittal reformatted images were submitted. COMPARISON: None. FINDINGS: Lung bases: The lung bases are clear. Liver and hepatic vasculature: No focal liver lesion. Gallbladder and bile ducts: Surgically absent gallbladder. Spleen: Normal spleen. Pancreas: Normal pancreas. Adrenals: Normal Kidneys, ureters and bladder: No hydronephrosis or obstruction. Decompressed bladder. No stones. Retroperitoneum and aorta: Mild aortic atherosclerosis. GI tract, mesentery and peritoneum: There are a few colonic diverticula. No findings of diverticuliti s. No bowel obstruction. No free fluid or free air. Uterus and adnexa: Unremarkable uterus. Bones and soft tissues: No acute osseous abnormality. Multilevel disc, endplate, and facet arthropath y. IMPRESSION: 1. Diverticulosis without findings of diverticulitis. 2. Surgically absent gallbladder. 3. No definite evidence of acute intra-abdominal abnormality. One of the following dose optimization techniques was utilized in the performance of this exam: Autom ated exposure control; adjustment of the mA and/or kV according to the patient's size; or use of an i terative reconstruction technique. Specific details can be referenced in the facility's radiology C T exam operational policy. Report Dictated By: Jorge Luis Galvan MD at 12/15/2018 9:22 PM Report E-Signed By: Jorge Luis Galvan MD at 12/15/2018 9:34 PM [id number]
[2018-12-15 22:00] VITALS: BP 157/69
--- NOTE | 2018-12-16 07:23 | EKG ---
[place] [facility] [place] NAME: SHERI REILLY : [id number] MR: [id number] V: [id number] EXAM DATE: ORDERING PHYSICIAN: JAZMÍN COATS TECHNOLOGIST: HARSHAL Test Reason : GI Blood Pressure : / mmHG Vent. Rate : 070 BPM Atrial Rate : 070 BPM P-R Int : 178 ms QRS Dur : 072 ms QT Int : 416 ms P-R-T Axes : 058 -22 001 degrees QTc Int : 449 ms Normal sinus rhythm Septal infarct (cited on or before 16-NOV-2017) Abnormal ECG When compared with ECG of 16-NOV-2017 19:19, No significant change was found Confirmed by EDGAR HART ([id number]) on 12/16/2018 9:16:58 PM Referred By: Confirmed By:EDGAR HART
== END 2018-12-15 22:24 | disposition home or self-care (01) ==
LOC: ER 18:59
DX: R10.12 Left upper quadrant pain (principal); K59.00 Constipation, unspecified; M54.2 Cervicalgia
CPT/HCPCS: 36416; 74022; 74177; 81001; 82150; 82948; 83690; 84484; 85025; 93005; 96374; 99284; A9270; J2405; Q9967; 82040; 82247; 82310; 82374; 82435; 82565; 82947; 84075; 84132; 84155; 84295; 84450; 84460; 84520

== ENCOUNTER 2019-01-30 18:26 | Emergency (ER) | payer MEDICARE, MEDICAID ==
[2016-09-03 14:14] VITALS: Wt 118.4 kg
[~2019-01-30 18:26] MED LIST changes: +MAGN100T2 PO; -RANI-366 PO; +RANI-54 PO
--- NOTE | 2019-01-30 18:40 | ER Report ---
History and Physical Time Seen By MD: 18:40 Hx. of Stated Complaint: loss of bowel function, transient numbness (AGUSTO BENZ) HPI/ROS CHIEF COMPLAINT: loss of bowel function, transient numbness HISTORY OF PRESENT ILLNESS: 68 year old female presents to the ED after being sent here from urgent care. Patient initially went to urgent care for wound excoriations to her toes bilaterally. Reports about 3 months ago she was experiencing increased layers of her skin on her toes. About 1 month ago she started to pick that skin off. She now has excoriation to the first and second toes on her right foot and first and third toes on her left. Patient reports they are painful, however she has hx of neuropathy in her legs and feet that has progressively worsened recently. Patient also presents reporting she has had loss of bowel function for 1 week. Reports she had bowel incontinence x1, but reports she can feel the sensation of needing to have a bowel movement in her abdomen when she has to have a bowel movement; but does not have the sensation to have a bowel movement in her rectum. Also report labial numbness and inner thigh numbness this morning. Reports the numbness has gone away this evening. De nies loss of bladder function. REVIEW OF SYSTEMS: Constitutional: Reports significant fatigue that has progressively worsened over the past several months. Denies fevers. HENT: Reports intermittent dizziness. Reports when she turns her head to the right or left she feels like she just keeps going. No dizziness today. Reports mild headache- has hx of migraines. Reports blurry vision that has progressively worsened this past week. Respiratory: Reports dyspnea. No cough. Cardiovascular: No current chest pain or palpitations. Gastrointestinal: Reports nausea. No vomiting, no abdominal pain. Neuro: Reports numbness on the sides of her tongue, numbness on labia, numbness on inner thighs. Reports neuropathy of bilateral lower extremities. Musculoskeletal: Reports significant back pain. Has recently diagnosed L1-L5 compressed discs. Skin: Has excoriated toes as described above. Also reports recent hx of rash on palms of hands and soles of feet. Reports it get red, itchy, then starts to peel . Her PCP has tried previous topical treatments with no relief. There appears to be a healing rash on the left hand. (AGUSTO BENZ) Allergies: Coded Allergies: Penicillins (Verified Allergy, Mild, 01/30/19) Sulfa (Sulfonamide Antibiotics) (Verified Allergy, Mild, 01/30/19) topiramate (Verified Allergy, Mild, 01/30/19) latex (Verified Allergy, Unknown, 01/30/19) erythromycin base (Verified Adverse Reaction, Intermediate, NAUSEA/V OMITING, 01/30/19) Home Meds Active Scripts Cephalexin 500 Mg Tab (KEFLEX 500 MG TAB) 500 Mg Tablet, 500 MG PO Q6H for 10 Days, #40 TAB Prov:AGUSTO BENZ PILL MAKER 01/30/19 Pantoprazole Sodium (PANTOPRAZOLE SODIUM) 40 Mg Tablet.dr, 1 TAB PO DAILY, #60 TAB 6 Refills Take 1 tablet every morning 1/2 hour before eating Prov:SARAH MARIA MD 09/10/18 Reported Medications Cyclobenzaprine Hcl (CYCLOBENZAPRINE HCL) 10 Mg Tablet, 10 MG PO QHS PRN for MUSCLE SPASMS, #9 TAB 12/15/18 Magnesium Citrate (MAGNESIUM CITRATE) 100 Mg Tablet, 100 MG PO QDAY 12/15/18 Cinnamon Bark (CINNAMON) 500 Mg Capsule, 500 MG PO QDAY, CAPSULE 12/15/18 Lysine (LYSINE) 1,000 Mg Tablet, 1000 MG PO DAILY 04/11/18 Levothyroxine Sodium (SYNTHROID) 25 Mcg Tablet, 0.5 TAB PO QDAY 04/11/18 Gabapentin (GABAPENTIN) 300 Mg Capsule, 500 MG PO HS, CAPSULE 03/22/18 Gabapentin (GABAPENTIN) 100 Mg Capsule, 100 MG PO QAM, CAPSULE 03/22/18 Venlafaxine Hcl (EFFEXOR XR) 150 Mg Cap.er.24h, 300 MG PO QDAY 03/22/18 Nabumetone (NABUMETONE) 500 Mg Tablet, 500 MG PO BID, #20 TAB 07/11/17 Vits W-Ca,Fe,Fa(<1MG) ( VITAMINS) 1 Each Tablet, 1 EACH PO DAILY, TAB 07/10/17 Modafinil (PROVIGIL) 100 Mg Tablet, 200 MG PO DAILY 03/10/16 Albuterol Sulfate (Proair Hfa) 8.5 Gm Aer.w.adap, 8.5 GM IH PRN 10/25/12 Past Medical/Surgical History Past medical hx of polymyalgia rheumatic, TIA, migraines, angina, EKG showing pr evious TN, heart palpitations, asthma, PE, colitis, GERD, difficulty starting urination, arthritis, fibromyalgia, chronic fatigue, back pain, pre-diabetes, thyroid cyst that is benign, cervical cancer at age 21. Past surgical hx of LTK, had cardiac stent placed, cholecystectomy 2000, appendectomy 1962, polyps removed with every colonoscopy, tubal ligation, tumor on knee removed as a child, tonsillectomy, carcinoma removed from skin on back. (AGUSTO BENZ) Reviewed Nurses Notes: Yes (AGUSTO BENZ) Hx Smoking: No Smoking Status: Never Smoker Exposure to Second Hand Smoke?: No Hx Substance Use Disorder: No (stated never did drugs but tested positive for Marijuana) Hx Alcohol Use: No (AGUSTO BENZ) Constitutional Vital Sign - Last 24 Hours 01/30/19 01/30/19 01/30/19 01/30/19 18:35 18:36 18:37 18:41 Temp 98.3 Pulse 47 60 64 Resp 16 B/P (MAP) 143/121 (128) 143/121 Pulse Ox 90 89 90 O2 Delivery Room Air 01/30/19 01/30/19 01/30/19 01/30/19 18:46 18:51 18:56 19:00 Pulse 63 63 66 B/P (MAP) 128/66 (86) Pulse Ox 89 90 90 01/30/19 01/30/19 01/30/19 01/30/19 19:01 19:06 19:11 19:16 Pulse 64 82 62 88 Pulse Ox 92 92 91 91 01/30/19 01/30/19 01/30/19 01/30/19 19:21 19:26 19:31 19:36 Pulse 62 88 81 60 Pulse Ox 88 87 90 90 01/30/19 01/30/19 01/30/19 01/30/19 19:41 19:46 19:51 19:56 Pulse 71 60 74 81 Pulse Ox 92 91 90 89 01/30/19 01/30/19 01/30/19 01/30/19 20:01 20:06 20:16 20:21 Pulse 80 91 62 Pulse Ox 88 90 92 92 01/30/19 01/30/19 01/30/19 01/30/19 20:26 20:31 20:36 20:41 Pulse 76 ??? 94 82 Pulse Ox 92 83 92 01/30/19 01/30/19 01/30/19 01/30/19 20:46 20:51 21:21 21:26 Pulse 79 78 ? Pulse Ox 91 91 01/30/19 01/30/19 01/30/19 01/30/19 21:31 21:36 21:41 21:46 Pulse ? 01/30/19 01/30/19 01/30/19 01/31/19 21:51 21:56 22:01 01:17 Pulse ? 78 Resp 12 B/P (MAP) 142/76 (98) Pulse Ox 95 O2 Delivery Room Air Intake and Output 01/30/19 01/30/19 01/31/19 15:00 23:00 07:00 Intake Total 1000 ml Balance 1000 ml (NATASHA KERR MD) Physical Exam General Appearance: The patient is alert, has no immediate need for airway protection and no current signs of toxicity. Eyes: Pupils equal and round no injection. Extraocular movement intact in all 6 smart. Respiratory: Chest is non tender, lungs are clear to auscultation. Cardiac: regular rate and rhythm Gastrointestinal: Abdomen is soft and non tender, no masses, bowel sounds normal. Musculoskeletal: Neck: Neck is supple and non tender. Extremities have full range of motion and are non tender. Neuro: Alert and oriented X3. Negative pronator drift. With microfilament test of feet, has decreased sensation in all areas bilaterally. Skin: Excoriation to first and second toe of left foot and first and third toe of right foot. Right toes with erythema and are warm to the touch. DIFFERENTIAL DIAGNOSIS: After history and physical exam differential diagnosis was considered for MS, cauda equina syndrome, brain tumor, stroke, intracranial bleed, compressed lumbar discs. (AGUSTO BENZ) Medical Decision Making Data Points Result Diagram: 01/30/19195101/30/191951 Laboratory Hematology Test 01/30/19 19:52 Red Blood Count 4.65 M/uL (4.17-5.56) Mean Corpuscular Volume 85.5 fL (80.0-96.0) Mean Corpuscular Hemoglobin 28.7 pg (26.0-33.0) Mean Corpuscular Hemoglobin Concent 33.6 g/dL (32.0-36.0) Red Cell Distribution Width 14.4 % (11.5-14.5) Mean Platelet Volume 10.6 fL (7.2-11.1) Neutrophils (%) (Auto) 61.7 % (39.4-72.5) Lymphocytes (%) (Auto) 27.0 % (17.6-49.6) Monocytes (%) (Auto) 8.7 % (4.1-12.4) Eosinophils (%) (Auto) 1.8 % (0.4-6.7) Basophils (%) (Auto) 0.8 % (0.3-1.4) Nucleated RBC Relative Count (auto) 0.0 /100WBC Neutrophils # (Auto) 6.4 K/uL (2.0-7.4) Lymphocytes # (Auto) 2.8 K/uL (1.3-3.6) Monocytes # (Auto) 0.9 K/uL (0.3-1.0) Eosinophils # (Auto) 0.2 K/uL (0.0-0.5) Basophils # (Auto) 0.1 K/uL (0.0-0.1) Nucleated RBC Absolute Count (auto) 0.00 K/uL Erythrocyte Sedimentation Rate 35 mm/HOUR (0-30) Sodium Level 140 mmol/L (137-145) Potassium Level 4.5 mmol/L (3.5-5.0) Chloride Level 106 mmol/L (98-107) Carbon Dioxide Level 23 mmol/L (22-31) Blood Urea Nitrogen 17 mg/dl (7-18) Creatinine 0.90 mg/dl (0.52-1.04) Glomerular Filtration Rate Calc > 60.0 Random Glucose 99 mg/dl (75-110) Calcium Level 9.1 mg/dl (8.4-10.2) Total Bilirubin 0.3 mg/dl (0.2-1.3) Aspartate Amino Transf (AST/SGOT) 25 U/L (0-35) Alanine Aminotransferase (ALT/SGPT) 33 U/L (0-56) Alkaline Phosphatase 142 U/L (0-126) C-Reactive Protein 0.8 mg/dl (<1.0) Total Protein 7.4 g/dl (6.3-8.2) Albumin 4.0 g/dl (3.5-5.0) Chemistry Test 01/30/19 19:52 White Blood Count 10.4 k/uL (4.5-11.0) Red Blood Count 4.65 M/uL (4.17-5.56) Hemoglobin 13.4 g/dL (12.0-16.0) Hematocrit 39.7 % (34.0-47.0) Mean Corpuscular Volume 85.5 fL (80.0-96.0) Mean Corpuscular Hemoglobin 28.7 pg (26.0-33.0) Mean Corpuscular Hemoglobin Concent 33.6 g/dL (32.0-36.0) Red Cell Distribution Width 14.4 % (11.5-14.5) Platelet Count 193 K/uL (150-450) Mean Platelet Volume 10.6 fL (7.2-11.1) Neutrophils (%) (Auto) 61.7 % (39.4-72.5) Lymphocytes (%) (Auto) 27.0 % (17.6-49.6) Monocytes (%) (Auto) 8.7 % (4.1-12.4) Eosinophils (%) (Auto) 1.8 % (0.4-6.7) Basophils (%) (Auto) 0.8 % (0.3-1.4) Nucleated RBC Relative Count (auto) 0.0 /100WBC Neutrophils # (Auto) 6.4 K/uL (2.0-7.4) Lymphocytes # (Auto) 2.8 K/uL (1.3-3.6) Monocytes # (Auto) 0.9 K/uL (0.3-1.0) Eosinophils # (Auto) 0.2 K/uL (0.0-0.5) Basophils # (Auto) 0.1 K/uL (0.0-0.1) Nucleated RBC Absolute Count (auto) 0.00 K/uL Erythrocyte Sedimentation Rate 35 mm/HOUR (0-30) Glomerular Filtration Rate Calc > 60.0 Calcium Level 9.1 mg/dl (8.4-10.2) Total Bilirubin 0.3 mg/dl (0.2-1.3) Aspartate Amino Transf (AST/SGOT) 25 U/L (0-35) Alanine Aminotransferase (ALT/SGPT) 33 U/L (0-56) Alkaline Phosphatase 142 U/L (0-126) C-Reactive Protein 0.8 mg/dl (<1.0) Total Protein 7.4 g/dl (6.3-8.2) Albumin 4.0 g/dl (3.5-5.0) (NATASHA KERR MD) EKG/Imaging Imaging PATIENT NAME: Lisbet Staples : 1950 MR: [id number] V: [id number] EXAM DATE: ORDERING PHYSICIAN: AGUSTO BENZ TECHNOLOGIST: Location: [facility] Patient: Lisbet Staples : 1950 Visit/Account:[id number] Date of Sevice: 01/30/2019 CHEST PA LAT HISTORY: Shortness of breath. Cough. COMPARISON: 11/16/2017 and studies dating to 06/11/2009. TECHNIQUE: PA and lateral views of the chest. FINDINGS: PULMONARY/PLEURA: Lungs are clear. There is no pneumothorax or pleural effusion. CARDIOMEDIASTINAL: Cardiac and mediastinal silhouettes are within normal limits. BONES/SOFT TISSUES: No acute osseous abnormality. There is mild degenerative change of the spine, unchanged. The visible abdomen is normal. IMPRESSION: 1. No acute cardiopulmonary process. (AGUSTO BENZ) Imaging MR BRAIN/BRAIN STEM W/ & W/O CON HISTORY: Transient numbness. Loss of bowel control. COMPARISON: 08/27/2016 and studies dating to 10/08/2009. Comparison studies include CTs and MRs. MR lumbar spine was performed at the same time as the current examination. TECHNIQUE: Multi-planar, multi-sequence brain MR was performed without and with contrast. CONTRAST: 15 mL intravenous MultiHance. FINDINGS: There is motion on some of the sequences. BRAIN: There is no restricted diffusion to indicate acute or early subacute ischemia. No intracranial hemorrhage, mass, or edema. There are a few nonspecific periventricular, subcortical, and deep white matter T2 hyperintensities, mild in severity, unchanged. No abnormal enhancement. SULCI, VENTRICLES, AND CISTERNS: Sulci are normal. The ventricles are normal in size and configuration. The basilar cisterns are patent. VESSELS: The vascular flow voids are normal. OSSEOUS STRUCTURES: Intact. PARANASAL SINUSES AND MASTOIDS: There is mild mucosal thickening of the right greater than left maxillary sinuses. There is mild mucosal thickening of the ethmoid sinuses. Rightward nasal septal deviation. Mastoids are clear. ORBITS AND SOFT TISSUES: Normal. IMPRESSION: 1. No acute intracranial abnormality or findings to account for patient's symptoms. 2. Nonspecific white matter changes are most likely due to chronic microvascular ischemic change, mild in severity, unchanged. 3. Mild paranasal sinus disease. Report Dictated By: Nidia Lugo at 01/31/2019 12:15 AM MR SPINE LUMBAR W/ & W/O CON HISTORY: Transient numbness. Loss of bowel control. COMPARISON: 03/17/2019 and studies dating to 08/21/2016. Comparison studies include a CTs and MRs of the lumbar spine. There are also lumbar spine x-rays dating to 02/25/2011. TECHNIQUE: Multi-planar, multi-sequence lumbar spine MR was performed without and with contrast. CONTRAST: 15 mL intravenous MultiHance. FINDINGS: There is motion on some of the sequences. There are five nonrib-bearing lumbar type vertebral bodies. ALIGNMENT: There is stable 1-2 mm anterolisthesis of L3 compared to L4. VERTEBRAL MARROW SIGNAL: There is type I endplate reactive change at L4-5 and at L5-S1. There are Schmorl nodes. DISTAL THORACIC CORD/SPINAL CANAL: Normal. No abnormal enhancement. CONUS: Normal, terminates at the level of T12. CAUDA EQUINA: Normal. PARAVERTEBRAL SOFT TISSUES: Normal. There is mild dependent subcutaneous edema that has progressed. VISUALIZED ABDOMINAL AND PELVIC STRUCTURES: There is a left renal cyst. T12-L1: Normal. L1-2: There are degenerative facet disease, facet and ligamentum flavum hypertrophy, and a minimal circumferential disc bulge. There are mild bilateral foraminal stenoses. This level is stable. L2-3: There are a mild circumferential disc bulge, degenerative facet disease, and facet and ligamentum flavum hypertrophy. There is mild narrowing of the spinal canal. There are mild bilateral foraminal stenoses. There is mild right lateral recess narrowing. This level is stable. L3-4: There are a circumferential disc bulge, degenerative facet disease, and facet and ligamentum flavum hypertrophy. Together, degenerative changes cause mild to moderate narrowing of the spinal canal. There are mild to moderate bilateral foraminal stenoses. There are moderate right and mild left lateral recess narrowing. This level is stable. L4-5: There are a circumferential disc bulge, degenerative facet disease, and facet and ligamentum flavum hypertrophy. Together, degenerative changes cause moderate to severe narrowing of the spinal canal. There is moderate to severe bilateral lateral recess narrowing. There are moderate to severe right and moderate left foraminal stenoses. This level is stable. L5-S1: There are a circumferential disc bulge, degenerative facet disease, and facet and ligamentum flavum hypertrophy. No spinal canal stenosis. Mild to moderate right and moderate left foraminal stenoses. This level is stable. IMPRESSION: 1. Stable degenerative changes of the spine detailed above, without acute abnormality. Spinal canal stenosis is at L4-5, where it is moderate to severe. 2. Greatest lateral recess narrowing is at L4-5, where it is moderate to severe bilaterally. 3. Greatest foraminal stenosis is at L4-5 on the right, where it is moderate to severe. Report Dictated By: Nidia Lugo at 01/31/2019 12:28 AM ([facility],NATASHA Newman MD) ED Course/Re-evaluation ED Course Upon arrival to the ED, patient admitted to an exam room, hx and physical obtained, differentials considered. Patient presents to the ED after being sent here from urgent care. Patient initially went to urgent care for wound excoriations to her toes bilaterally. Reports about 3 months ago she was experiencing increased layers of her skin on her toes. About 1 month ago she started to pick that skin off. She now has excoriation to the first and second toes on her right foot and first and third toes on her left. Patient reports they are painful, however she has hx of neuropathy in her legs and feet that has progressively worsened recently. Patient also presents reporting she has had loss of bowel function for 1 week. Reports she had bowel incontinence x1, but reports she can feel the sensation of needing to have a bowel movement in her abdomen when she has to have a bowel movement; but does not have the sensation to have a bowel movement in her rectum. Also report labial numbness and inner thigh numbness this morning. Reports the numbness has gone away this evening. Denies loss of bladder function. Also reports numbness of both sides of her tongue that has been present for weeks. Reports significant fatigue that has progressively worsened over the past several months. Reports intermittent dizziness. Reports when she turns her head to the right or left she feels like she just keeps going. No dizziness today. Reports blurry vision that has progressively worsened this past week. Reports dyspnea. No cough. Reports significant back pain. Has recently diagnosed L1-L5 compressed discs. On exam, neuro is intact, lungs are clear to auscultation, heart regular. Patient has excoriations to first and second toes on her right foot and first and third toes on her left. Right toes with erythema and are warm to the touch. IV started. CBC, CMP, ESR, CRP, chest x-ray, MRI of brain, and MRI of lumbar spine ordered. Labs relatively unremarkable. ESR slightly elevated at 35, however, CRP normal. Alk phos slightly elevated at 142. No acute cardiopulmonary process on chest x- ray. Turned Over Care of the patient was turned over to Dr. Kerr at 00:15. (AGUSTO BENZ) ED Course I assumed care of this patient from Agusto mccracken. MRI was done and results finally available. No signs of MS or stroke or masses. She does have degenerative disc disease in the lumbar spine, she does have appointments to follow up with primary care and with neurosurgery. She is thinking of seeing the doctors at [facility] for further evaluation of her many health problems. Recommended she follow up with these different providers. No changes in medications at this time. The only thing that will happen was she will take some cephalexin for the lower extremity cellulitis as prescribed earlier today. Decision to Disposition Date: Jan 31, 2019 Decision to Disposition Time: 01:14 (NATASHA KERR MD) Depart Departure Latest Vital Signs Vital Signs Date Time Temp Pulse Resp B/P (MAP) Pulse Ox O2 Delivery O2 Flow Rate FiO2 01/31/19 01:17 78 12 142/76 (98) 95 Room Air 01/30/19 18:37 98.3 (NATASHA KERR MD) Impression: Primary Impression: Cellulitis Condition: Condition Unchanged Disposition: HOME OR SELF-CARE Referrals: SANDEE LAWSON (PCP) New Scripts Cephalexin 500 Mg Tab (KEFLEX 500 MG TAB) 500 Mg Tablet 500 MG PO Q6H for 10 Days, #40 TAB Prov: AGUSTO BENZ 01/30/19 Additional Instructions: Please drink plenty of water and get plenty of rest. Follow-up with your primary care provider in the next two days. Follow-up with the [facility] as you have planned. Take Cephalexin 500mg 4 times a day for 10 days for the feet. Problem Qualifiers Primary Impression: Cellulitis Site of cellulitis: extremity Site of cellulitis of extremity: lower extremity Laterality: unspecified laterality Qualified Codes: L03.119 - Cellulitis of unspecified part of limb AGUSTO BENZ Jan 30, 2019 18:40 CIRILONATASHA HAN MD Jan 31, 2019 00:09
[2019-01-30] MEDS ORDERED: NS(*) 0.9% 1000 ML BAG 1,000 ML IV ONE (19:20)
[2019-01-30 20:05] LABS: PLATELET COUNT, AUTOMATED 193 K/uL (150-450)
[2019-01-30] MEDS ORDERED: GADOBENATE 529MG/1ML 15ML VIAL IVP ONE ×2 (21:00→21:02)
--- NOTE | 2019-01-30 22:42 | RADIOLOGY IMAGING REPORT ---
FACILITY: [facility] - [place] PATIENT NAME: Lisbet Staples : 1950 MR: [id number] V: [id number] EXAM DATE: ORDERING PHYSICIAN: ROSA MARIA BENZ TECHNOLOGIST: Location: [facility] Patient: Lisbet Staples : 1950 Visit/Account:[id number] Date of Sevice: 01/30/2019 CHEST PA LAT HISTORY: Shortness of breath. Cough. COMPARISON: 11/16/2017 and studies dating to 06/11/2009. TECHNIQUE: PA and lateral views of the chest. FINDINGS: PULMONARY/PLEURA: Lungs are clear. There is no pneumothorax or pleural effusion. CARDIOMEDIASTINAL: Cardiac and mediastinal silhouettes are within normal limits. BONES/SOFT TISSUES: No acute osseous abnormality. There is mild degenerative change of the spine, unc hanged. The visible abdomen is normal. IMPRESSION: 1. No acute cardiopulmonary process. Report Dictated By: Nidia Lugo at 01/30/2019 10:37 PM Report E-Signed By: Nidia Lugo at 01/30/2019 10:39 PM WSN:[id number]
[2019-01-30] MEDS ORDERED: CEPH500T7 PO (23:56)
--- NOTE | 2019-01-31 00:32 | RADIOLOGY IMAGING REPORT ---
FACILITY: [facility] [place] PATIENT NAME: Lisbet Staples : 1950 MR: [id number] V: [id number] EXAM DATE: ORDERING PHYSICIAN: ROSA MARIA BENZ TECHNOLOGIST: Location: [facility] Patient: Lisbet Staples : 1950 Visit/Account:[id number] Date of Sevice: 01/30/2019 MR BRAIN/BRAIN STEM W/ & W/O CON HISTORY: Transient numbness. Loss of bowel control. COMPARISON: 08/27/2016 and studies dating to 10/08/2009. Comparison studies include CTs and MRs. MR lumb ar spine was performed at the same time as the current examination. TECHNIQUE: Multi-planar, multi-sequence brain MR was performed without and with contrast. CONTRAST: 15 mL intravenous MultiHance. FINDINGS: There is motion on some of the sequences. BRAIN: There is no restricted diffusion to indicate acute or early subacute ischemia. No intracranial hemorrhage, mass, or edema. There are a few nonspecific periventricular, subcortical, and deep white matter T2 hyperintensities, mild in severity, unchanged. No abnormal enhancement. SULCI, VENTRICLES, AND CISTERNS: Sulci are normal. The ventricles are normal in size and configuratio n. The basilar cisterns are patent. VESSELS: The vascular flow voids are normal. OSSEOUS STRUCTURES: Intact. PARANASAL SINUSES AND MASTOIDS: There is mild mucosal thickening of the right greater than left maxil david sinuses. There is mild mucosal thickening of the ethmoid sinuses. Rightward nasal septal deviati on. Mastoids are clear. ORBITS AND SOFT TISSUES: Normal. IMPRESSION: 1. No acute intracranial abnormality or findings to account for patient's symptoms. 2. Nonspecific white matter changes are most likely due to chronic microvascular ischemic change, mil d in severity, unchanged. 3. Mild paranasal sinus disease. Report Dictated By: Nidia Lugo at 01/31/2019 12:15 AM Report E-Signed By: Nidia Lugo at 01/31/2019 12:28 AM WSN:[id number]
--- NOTE | 2019-01-31 00:47 | RADIOLOGY IMAGING REPORT ---
FACILITY: [facility] - [place] PATIENT NAME: Lisbet Staples : 1950 MR: [id number] V: [id number] EXAM DATE: ORDERING PHYSICIAN: ROSA MARIA BENZ TECHNOLOGIST: Location: [facility] [place] Patient: Lisbet Staples : 1950 Visit/Account:[id number] Date of Sevice: 01/30/2019 MR SPINE LUMBAR W/ & W/O CON HISTORY: Transient numbness. Loss of bowel control. COMPARISON: 03/17/2019 and studies dating to 08/21/2016. Comparison studies include a CTs and MRs of t he lumbar spine. There are also lumbar spine x-rays dating to 02/25/2011. TECHNIQUE: Multi-planar, multi-sequence lumbar spine MR was performed without and with contrast. CONTRAST: 15 mL intravenous MultiHance. FINDINGS: There is motion on some of the sequences. There are five nonrib-bearing lumbar type vertebral bodies. ALIGNMENT: There is stable 1-2 mm anterolisthesis of L3 compared to L4. VERTEBRAL MARROW SIGNAL: There is type I endplate reactive change at L4-5 and at L5-S1. There are Marie morl nodes. DISTAL THORACIC CORD/SPINAL CANAL: Normal. No abnormal enhancement. CONUS: Normal, terminates at the level of T12. CAUDA EQUINA: Normal. PARAVERTEBRAL SOFT TISSUES: Normal. There is mild dependent subcutaneous edema that has progressed. VISUALIZED ABDOMINAL AND PELVIC STRUCTURES: There is a left renal cyst. T12-L1: Normal. L1-2: There are degenerative facet disease, facet and ligamentum flavum hypertrophy, and a minimal ci rcumferential disc bulge. There are mild bilateral foraminal stenoses. This level is stable. L2-3: There are a mild circumferential disc bulge, degenerative facet disease, and facet and ligament um flavum hypertrophy. There is mild narrowing of the spinal canal. There are mild bilateral foramina l stenoses. There is mild right lateral recess narrowing. This level is stable. L3-4: There are a circumferential disc bulge, degenerative facet disease, and facet and ligamentum fl avum hypertrophy. Together, degenerative changes cause mild to moderate narrowing of the spinal canal . There are mild to moderate bilateral foraminal stenoses. There are moderate right and mild left lat eral recess narrowing. This level is stable. L4-5: There are a circumferential disc bulge, degenerative facet disease, and facet and ligamentum fl avum hypertrophy. Together, degenerative changes cause moderate to severe narrowing of the spinal can al. There is moderate to severe bilateral lateral recess narrowing. There are moderate to severe righ t and moderate left foraminal stenoses. This level is stable. L5-S1: There are a circumferential disc bulge, degenerative facet disease, and facet and ligamentum f lavum hypertrophy. No spinal canal stenosis. Mild to moderate right and moderate left foraminal steno ses. This level is stable. IMPRESSION: 1. Stable degenerative changes of the spine detailed above, without acute abnormality. Spinal canal s tenosis is at L4-5, where it is moderate to severe. 2. Greatest lateral recess narrowing is at L4-5, where it is moderate to severe bilaterally. 3. Greatest foraminal stenosis is at L4-5 on the right, where it is moderate to severe. Report Dictated By: Nidia Lugo at 01/31/2019 12:28 AM Report E-Signed By: Nidia Lugo at 01/31/2019 12:44 AM WSN:[id number]
[2019-01-31 01:17] VITALS: BP 142/76
== END 2019-01-31 01:11 | disposition home or self-care (01) ==
LOC: ER 18:44
DX: L03.119 Cellulitis of unspecified part of limb (principal)
CPT/HCPCS: 70553; 71046; 72158; 82040; 82247; 82310; 82374; 82435; 82565; 82947; 84075; 84132; 84155; 84295; 84450; 84460; 84520; 85025; 85651; 86140; 96360; 96361; 99284; A9577; J7030

== ENCOUNTER → 2019-02-01 | Outpatient (REF) | payer MEDICARE, MEDICAID ==
[2016-09-03 14:14] VITALS: BMI 41.0
[~2019-02-01] MED LIST changes: +CEPH500T7 PO
== END ==
LOC: ZZSTITCHES 10:52
PROVIDERS: ATTEND Physician Assistant
DX: L03.031 Cellulitis of right toe (principal); B96.89 Other specified bacterial agents as the cause of diseases classified elsewhere
CPT/HCPCS: 87071; 87077; 87186